=== PATIENT | female | born 1945 | race Caucasian/White ===

== ENCOUNTER → 2017-12-18 | Outpatient (CLI) | payer OTHER ==
[2016-08-15 12:29] VITALS: BP 117/62
--- NOTE | 2017-12-18 15:21 | MRI ---
Indication: Back pain Exam: MRI lumbar spine without contrast. Technique: Routine multiplanar multisequence imaging was performed of the lumbar spine without contra st. Comparison: 11/28/2014. Findings: The lumbar vertebra are well aligned. There is moderate disc space narrowing throughout wit h diffuse moderate disc desiccation which is most severe at L4-5 which is unchanged. No fracture or s ubluxation is seen. The bone marrow signal is normal throughout. The conus is normal. There is a mild to moderate disc bulge at L4-5 causing mild dural sac effacement anteriorly which is unchanged. Ther e is a small central disc bulge at L5-S1. There are moderate hypertrophic changes of the facet throug hout with mild spinal stenosis inferiorly which is most prominent at the L3-4 level. The paravertebra l soft tissues are normal. The bone marrow signal is normal throughout. There is minimal fluid in the facet of L4-5 on the left. Impression: Moderate multilevel degenerative disc disease which is most severe at L4-5 and is unchanged with no a cute abnormality seen. Mild to moderate central disc bulge at L4-5 and a small disc bulge at L5-S1 which is unchanged Moderate osteoarthritic changes of facets throughout causing diffuse mild spinal stenosis which is mo st prominent at the L3-4 level and is unchanged. Minimal fluid in the facet at L3-4 on the left which may represent synovitis in the joint. Reported By:
--- NOTE | 2017-12-21 07:49 | MRI ---
HISTORY: Neck pain, neuropathy Study: MRI cervical spine without contrast Comparison: 11/21/2014 Technique: Multi planar multi sequence noncontrast imaging Findings: The vertebral body alignment and bone signal is normal. The cervical spinal cord is normal in size an d configuration and without foci of abnormal signal. The disc levels are evaluated as follows: C2-3 level: No evidence for compressive disc disease. The neural foramina are patent. C3-4 level: No evidence for compressive disc disease. The neural foramina are patent. C4-5 level: No evidence for compressive disc disease. The neural foramina are patent. C5-6 level: There is minimal noncompressive disc bulging. The neural foramina are patent. C6-7 level. There is mild disc bulging which causes minimal thecal sac effacement but no neural compr ession or canal stenosis. The neural foramina are patent. C7-T1 level: No evidence for compressive disc disease. The neural foramina are patent. IMPRESSION: As above Reported By:
== END | disposition home or self-care (01) ==
LOC: RAD 10:59
PROVIDERS: ATTEND Nurse Practitioner Family
DX: M54.17 Radiculopathy, lumbosacral region (principal); M51.36 Other intervertebral disc degeneration, lumbar region; M51.26 Other intervertebral disc displacement, lumbar region; M51.27 Other intervertebral disc displacement, lumbosacral region; M50.222 Other cervical disc displacement at C5-C6 level
CPT/HCPCS: 72141; 72148

== ENCOUNTER 2018-02-06 17:31 | Observation (INO) | payer MEDICARE, OTHER ==
[2018-02-06] MEDS ORDERED: ZOFRAN INJ 4 MG VIAL IVP ONE (20:15)
[2018-02-06] MEDS ORDERED: TORADOL 30 MG VIAL IVP STA (20:15)
[2018-02-06] MEDS ORDERED: TORADOL 30 MG VIAL ONE (20:17)
[2018-02-06] MEDS ORDERED: ZOFRAN INJ 4 MG VIAL ONE (20:17)
--- NOTE | 2018-02-06 20:21 | DR.GENAD ---
HPI - PCP Primary Care Physician: MARY - Complaint/Symptoms Chief Complaint Doctors Comments: Patient is complaining of hurting epigastric and chest pain with nausea, vomiting and diarrhea. States she is unable to keep anything down. States she took a Percocet but it came back up. States she is having xiphoid chest pain that radiates to the left arm and neck. States she is a patient of Dr. Rosado and she has a grand child with gastroenteritis and she is afraid that she may have it also. states she has been having low back pain but it is chronic. she denies dysuria, hematuria, or any recent trauma. States she has had a probllem with diverticulosis. states she ate at a [place] rest[employer] yesterday but she was sick before then. Chief Complaint:: " M GI SYSTEM IS UPSET, I FEEL WEAK AND MY THROW UP IS YELLOW , TENDER IN MIDDLE ABD, LOWER AND UPPER BACK" Self Treatment fo Chief Complaint: PHENERGAN - Nurses notes reviewed Nurses Notes Review: Yes - Source History Provided: Patient - Mode of Arrival Mode of Arrival: Wheelchair - Timing Onset of Chief Complaint: 02/06/18 Came on: Gradually - Duration Duration: Constant How lon Duration: Days - Location Location: epigastric and xiphoid pain - Severity Severity: Moderate, Severe - Modifying Factors Worsens:: movement Improves:: nothing PMH - PMH Past Medical History: Yes Past Medical History: COPD, GERD, Hypertension Past Medical History Comment: CHRONIC BACK PAIN Past Surgical History: Yes Surgical History: Appendectomy, Bowel Resection, Cholecystectomy, Hysterectomy - Family History History of Family Medical Conditions: No Family Medical History: Diabetes Mellitus, Cancer, Heart Failure, Hypertension - Social History Does patient currently use any type of tobacco product: No Have you used tobacco products in the last 12 months: No Type of Tobacco Use: None Does any household member use tobacco: No Alcohol Use: None Do you use any recreational Drugs:: No Lives With: Family Lives Where: Home - infectious screening In the last 2 months have you had wt loss of >10#?: NO Have you had fever, night sweats or hemotysis?: No Have you traveled outside the country in the last 6 months?: No Isolation: Standard ROS - Review of Systems Constitutional: No Symptoms Reported, Fever, Loss of Appetite Eyes: No Symptoms Reported. negative: See HPI, Eye Pain, Blurred Vision, Tearing, Discharge, Photophobia, Diplopia, Other ENTM: No Symptoms Reported. negative: See HPI, Ear Pain, Ear Discharge, Pulling on Ears, Hearing Loss, Nose Pain, Nose Discharge, Epistaxis, Nose Congestion, Mouth Pain, Mouth Swelling, Loose Teeth, Drooling, Throat Pain, Throat Swelling, Ear Foreign Body Respiratoy: No Symptoms Reported Cardiovascular: No Symptoms Reported, Chest Pain. negative: See HPI, Edema, Palpitations, Syncope, Cyanosis, Skin Mottling, Other Gastrointestinal/Abdominal: No Symptoms Reported, Abdominal Pain, Diarrhea, Nausea, Vomiting Genitourinary: No Symptoms Reported. negative: See HPI, Discharge, Dysuria, Frequency, Hematuria, Pain, Bleeding, Other Neurological: No Symptoms Reported Musculoskeletal: No Symptoms Reported Integumentary: No Symptoms Reported Hematologic/Lymphatic: No Symptoms Reported. negative: See HPI, Anemia, Blood Clots, Easy Bleeding, Easy Bruising, Swollen Glands, Lymphadenopathy, Other Endocrine: No Symptoms Reported Psychiatric: No Symptoms Reported. negative: See HPI, Anxiety, Depression, Hallucinations, Excessive crying, Suicidal, Other PE - Vital Signs Vitals: Temperature 97.9 F Pulse Rate 74 Respiratory Rate 18 Blood Pressure [Left Arm] 154/84 Blood Pressure [Right Arm] 117/62 Blood Pressure [Lying] 200/100 Blood Pressure [Standing] 187/96 Blood Pressure [Sitting] 202/108 Blood Pressure 110/58 O2 Sat by Pulse Oximetry 98 - General Limitations: No Limitations General Appearance: Alert, In Distress (moderate), Obese - Head Head Exam: Normal Inspection, Atraumatic, Normocephalic - Eyes Eye exam: Normal Appearance, PERRL, EOMI. negative: Scleral Icterus, Conjunctival Injection, Nystagmus, Miosis, Mydrasis, Periorbital Swelling, Periorbital Tenderness, Other - ENT ENT Exam: Normal Exam, Normal Oropharynx, Normal External Ear Exam External Ear Exam: Normal External Inspection TM/Canal Exam: Bilateral Normal Nose Exam: Normal Nose Exam Mouth Exam: Normal Inspection Throat Exam: Normal Inspection - Neck Neck Exam: Normal Inspection, Full ROM, Trachea Midline - Chest Chest Inspection: Normal Inspection, Symmetric Chest Wall Rise - Respiratory Respiratory Exam: Normal Lung Sounds Bilat Respiratory Exam: Bilateral Clear to Auscultation - Cardiovascular Cardiovascular Exam: Regular Rate, Normal Rhythm, Normal Heart Sounds, Systolic Murmur - Abdominal Exam Abdominal Exam: Normal Inspection, Normal Bowel Sounds, Soft, Tenderness ( epigastric and suprapubic tenderness), Guarding, Dimnished Bowel Sounds Abdominal Tenderness: LLQ, Suprapubic, Moderate, Severe - Extremities Extremities Exam: Normal Inspection, Full ROM, Tenderness (crepitus of the knees with tenderness), Normal Capillary Refill - Back Back Exam: Normal Inspection, Full ROM - Neurologic Neurological Exam: Alert, Oriented X3, CN II-XII Intact, Reflexes Normal. negative: Normal Gait (gait not tested) - Psychiatric Psychiatric Exam: Normal Affect, Normal Mood, Depressed - Skin Skin Exam: Warm, Dry, Intact, Normal Color Course - Consultation Called: :14 Call Returned: : (Dr. Rosado to admit) - Education/Counseling Education/Counseling: Patient, Family Educated On: Treatment, Diagnosis, Needs for Follow Up ROR - Labs Reviewed Laboratory Results Reviewed?: Yes (all labs and x-ray results reviewed and discussed with patient and family) Result Diagrams: 02/06/18 20:30 02/06/18 20:30 Laboratory: WBC 9.8 X10^3/uL (3.6-10.0) 02/06/18 20:30 RBC 5.25 X10^6/uL (3.5-5.4) 02/06/18 20:30 Hgb 16.5 g/dL (12.0-16.0) H 02/06/18 20:30 Hct 48.1 % (36.0-47.0) H 02/06/18 20:30 MCV 91.7 fL (80.0-100.0) 02/06/18 20:30 MCH 31.4 pg (27.0-34.0) 02/06/18 20:30 MCHC 34.3 g/dL (33.0-35.0) 02/06/18 20:30 RDW 13.3 % (11.6-16.5) 02/06/18 20:30 Plt Count 205 X10^3/uL (150.0-450.0) 02/06/18 20:30 MPV 9.1 fL (7.4-11.0) 02/06/18 20:30 Neut % (Auto) 87.9 % (42.0-75.0) H 02/06/18 20:30 Lymph % (Auto) 5.8 % (21.0-51.0) L 02/06/18 20:30 [place] % (Auto) 4.8 % (0.0-13.0) 02/06/18 20:30 Eos % (Auto) 1.1 % (0.9-2.9) 02/06/18 20:30 Baso % (Auto) 0.4 % (0.2-1.0) 02/06/18 20:30 Neut # (Auto) 8.6 x10^3/uL (2.2-4.8) H 02/06/18 20:30 Lymph # (Auto) 0.6 X10^3/uL (1.3-2.9) L 02/06/18 20:30 [place] # (Auto) 0.5 x10^3/uL (0.3-0.8) 02/06/18 20:30 Eos # (Auto) 0.1 x10^3/uL (0.0-0.2) 02/06/18 20:30 Baso # (Auto) 0.0 X10^3/uL (0.0-0.1) 02/06/18 20:30 Absolute Nucleated RBC 0.0 /100WBC 02/06/18 20:30 INR Target Range - 02/06/18 20:30 INR 0.97 (0.8-1.3) 02/06/18 20:30 APTT 21.4 SECONDS (22.9-36.5) L 02/06/18 20:30 PTT Comment - 02/06/18 20:30 Sodium 136 mmol/L (136-145) 02/06/18 20:30 Corrected Sodium 137 mmol/L (136-145) 02/06/18 20:30 Potassium 4.3 mmol/L (3.5-5.1) 02/06/18 20:30 Chloride 99 mmol/L (98-107) 02/06/18 20:30 Carbon Dioxide 22.9 mmol/L (21-32) 02/06/18 20:30 BUN 34 mg/dL (7-18) H 02/06/18 20:30 Creatinine 1.40 mg/dL (0.55-1.02) H 02/06/18 20:30 Est GFR (MDRD) Af Amer 47 (>60) L 02/06/18 20:30 Est GFR (MDRD) Non-Af 39 (>60) L 02/06/18 20:30 Glucose 124 mg/dL (65-99) H 02/06/18 20:30 Calcium 9.5 mg/dL (8.5-10.1) 02/06/18 20:30 Corrected Calcium TNP 02/06/18 20:30 Magnesium 2.0 mg/dL (1.7-2.9) 02/06/18 20:30 Total Bilirubin 1.10 mg/dL (0.2-1.0) H 02/06/18 20:30 AST 67 Units/L (15-37) H 02/06/18 20:30 ALT 48 Units/L (12-78) 02/06/18 20:30 Alkaline Phosphatase 110 Units/L (46-116) 02/06/18 20:30 Creatine Kinase 51 Units/L (26-192) 02/06/18 20:30 CK-MB (CK-2) < 1.0 ng/mL (0-4.0) 02/06/18 20:30 CK/CKMB % Calc 2.0 % (<4) 02/06/18 20:30 Troponin I < 0.02 ng/mL (0-1.5) 02/06/18 20:30 Total Protein 8.8 g/dL (6.4-8.2) H 02/06/18 20:30 Albumin 3.9 g/dL (3.4-5.0) 02/06/18 20:30 Globulin 4.9 g/dL (2.5-4.5) H 02/06/18 20:30 Albumin/Globulin Ratio 0.8 Ratio (1.1-2.1) L 02/06/18 20:30 Amylase 64 Units/L (25-115) 02/06/18 20:30 Lipase 115 Units/L (73-393) 02/06/18 20:30 - XRAY XRAY Interpreted by: Radiologist (CXR: No acute cardiopulmonary disease) - EKG Rate: [address] [place]: Normal Rhythm: NSR Block: None Hypertrophy: None ST: Nonsp - Diagnosis Discharge Problem: Chest pain, rule out acute myocardial infarction, Gastroenteritis, Dehydration , Chronic kidney disease, Epigastric abdominal pain - Discharge Plan Disposition: ADMITTED INPATIENT Condition: Stable - Follow ups/Referrals Follow ups/Referrals: Joseph Rosado [Primary Care Provider] - 3 days - Instructions
[2018-02-06 20:42] LABS: BASOPHILS % (AUTO) 0.4 % (0.2-1.0); EOSINOPHILS # (AUTO) 0.1 x10^3/uL (0.0-0.2); EOSINOPHILS % (AUTO) 1.1 % (0.9-2.9); HEMATOCRIT 48.1 % (36.0-47.0); HEMOGLOBIN 16.5 g/dL (12.0-16.0); LYMPHOCYTES # (AUTO) 0.6 X10^3/uL (1.3-2.9); LYMPHOCYTES % (AUTO) 5.8 % (21.0-51.0); MEAN CORPUSCULAR HEMOGLOBIN 31.4 pg (27.0-34.0); MEAN CORPUSCULAR HGB CONC 34.3 g/dL (33.0-35.0); MEAN CORPUSCULAR VOLUME 91.7 fL (80.0-100.0); MEAN PLATELET VOLUME 9.1 fL (7.4-11.0); MONOCYTES # (AUTO) 0.5 x10^3/uL (0.3-0.8); MONOCYTES % (AUTO) 4.8 % (0.0-13.0); NEUTROPHILS # (AUTO) 8.6 x10^3/uL (2.2-4.8); NEUTROPHILS % (AUTO) 87.9 % (42.0-75.0); PLATELET COUNT 205 X10^3/uL (150.0-450.0); RED BLOOD COUNT 5.25 X10^6/uL (3.5-5.4); RED CELL DISTRIBUTION WIDTH 13.3 % (11.6-16.5); WHITE BLOOD COUNT 9.8 X10^3/uL (3.6-10.0)
[2018-02-06 20:58] LABS: BLOOD UREA NITROGEN 34 mg/dL (7-18); CALCIUM 9.5 mg/dL (8.5-10.1); CARBON DIOXIDE 22.9 mmol/L (21-32); CHLORIDE 99 mmol/L (98-107); COR NA(FOR HYPERGLY) 137 mmol/L (136-145); SODIUM 136 mmol/L (136-145); TROPONIN I < 0.02 ng/mL (0-1.5); eGFR BLACK RACES 47 (>60); eGFR NON BLACK RACES 39 (>60)
[2018-02-06] MEDS ORDERED: NS 1000 ML 1,000 ML IV SCH (21:00)
--- NOTE | 2018-02-06 21:01 | RAD ---
HISTORY: Chest pain Study: Single-view chest Comparison: 08/13/2016 Findings: The trachea is deviated to the right secondary patient rotation. The cardiac silhouette is unremarka ble. The lungs are clear without focal infiltrate or effusion. The bony thorax is unremarkable. IMPRESSION: 1. No acute cardiopulmonary disease. Reported By:
[2018-02-06 21:02] LABS: ALANINE AMINOTRANSFERASE 48 Units/L (12-78); ALBUMIN 3.9 g/dL (3.4-5.0); ALKALINE PHOSPHATASE 110 Units/L (46-116); AMYLASE 64 Units/L (25-115); CREATINE KINASE 51 Units/L (26-192); CREATINE KINASE MB < 1.0 ng/mL (0-4.0); LIPASE 115 Units/L (73-393); TOTAL PROTEIN 8.8 g/dL (6.4-8.2)
[2018-02-06 21:09] LABS: ASPARTATE AMINO TRANSFERASE 67 Units/L (15-37)
[2018-02-06] MEDS ORDERED: ZOFRAN INJ 4 MG VIAL IVP PRN (22:18)
[2018-02-07] MEDS: NS 1000 ML 1,000 ML IV SCH ×2 (00:14→12:17)
[2018-02-07 03:13] LABS: CREATINE KINASE 49 Units/L (26-192); CREATINE KINASE MB < 1.0 ng/mL (0-4.0); TROPONIN I < 0.02 ng/mL (0-1.5)
[2018-02-07] MEDS ORDERED: NORCO 5/325 MG TAB PO PRN (04:37)
[2018-02-07] MEDS: LOMOTIL PO PRN ×3 (04:48→09:01)
[2018-02-07 08:14] LABS: CRYPTOSPORIDIUM PARVUM ANTIGEN NEGATIVE (NEGATIVE); GIARDIA LAMBLIA ANTIGEN NEGATIVE (NEGATIVE)
[2018-02-07 08:53] LABS: BASOPHILS % (AUTO) 0.6 % (0.2-1.0); EOSINOPHILS # (AUTO) 0.1 x10^3/uL (0.0-0.2); EOSINOPHILS % (AUTO) 1.3 % (0.9-2.9); HEMATOCRIT 40.3 % (36.0-47.0); HEMOGLOBIN 13.9 g/dL (12.0-16.0); LYMPHOCYTES # (AUTO) 0.7 X10^3/uL (1.3-2.9); LYMPHOCYTES % (AUTO) 14.3 % (21.0-51.0); MEAN CORPUSCULAR HEMOGLOBIN 31.3 pg (27.0-34.0); MEAN CORPUSCULAR HGB CONC 34.5 g/dL (33.0-35.0); MEAN CORPUSCULAR VOLUME 90.8 fL (80.0-100.0); MEAN PLATELET VOLUME 8.7 fL (7.4-11.0); MONOCYTES # (AUTO) 0.4 x10^3/uL (0.3-0.8); MONOCYTES % (AUTO) 7.5 % (0.0-13.0); NEUTROPHILS % (AUTO) 76.3 % (42.0-75.0); PLATELET COUNT 170 X10^3/uL (150.0-450.0); RED BLOOD COUNT 4.44 X10^6/uL (3.5-5.4); RED CELL DISTRIBUTION WIDTH 13.5 % (11.6-16.5); WHITE BLOOD COUNT 5.2 X10^3/uL (3.6-10.0)
[2018-02-07] MEDS: LOVENOX INJ 40 MG SYR SC SCH (09:00)
[2018-02-07] MEDS ORDERED: PROTONIX INJ 40 MG VIAL IVP SCH (09:00)
[2018-02-07 09:07] LABS: ALANINE AMINOTRANSFERASE 47 Units/L (12-78); ALBUMIN 3.1 g/dL (3.4-5.0); ALKALINE PHOSPHATASE 87 Units/L (46-116); ASPARTATE AMINO TRANSFERASE 46 Units/L (15-37); BLOOD UREA NITROGEN 31 mg/dL (7-18); CALCIUM 8.1 mg/dL (8.5-10.1); CARBON DIOXIDE 24.9 mmol/L (21-32); CHLORIDE 105 mmol/L (98-107); COR CA(FOR HYPOALB) 8.8 mg/dL (8.5-10.1); CREATININE 1.28 mg/dL (0.55-1.02); SODIUM 140 mmol/L (136-145); TOTAL PROTEIN 6.9 g/dL (6.4-8.2); eGFR BLACK RACES 52 (>60); eGFR NON BLACK RACES 43 (>60)
[2018-02-07 09:13] LABS: CHOL/HDL RATIO 4.4 (0.0-5.0)
[2018-02-07 09:23] LABS: CREATINE KINASE 42 Units/L (26-192); CREATINE KINASE MB < 1.0 ng/mL (0-4.0); TROPONIN I < 0.02 ng/mL (0-1.5)
[2018-02-07 09:25] LABS: CKMB % 2.4 % (<4)
[2018-02-07] MEDS ORDERED: NS 1000 ML 1,000 ML IV ONE (09:39)
[2018-02-07] MEDS: ZOFRAN INJ 4 MG VIAL IVP PRN (10:30)
[2018-02-07] MEDS: LEVSIN/MAALOX/LIDOC VISC PO SCH ×4 (12:11→21:26)
[2018-02-07] MEDS: PEPCID 20 MG IV PREMIX* 20 MG/50 ML BAG IV SCH ×2 (12:16→21:32)
[2018-02-07] MEDS: PERCOCET TAB 5/325 MG PO PRN (17:26)
[2018-02-07] MEDS ORDERED: XANAX PO PRN (20:19)
[2018-02-07] MEDS ORDERED: ULTRAM PO PRN (20:19)
[2018-02-07] MEDS: PROTONIX INJ 40 MG VIAL IVP SCH (21:31)
--- NOTE | 2018-02-07 23:20 | DR.H&P ---
H&P - History & Physical for Day of: H&P Date: 02/06/18 - Chief Complaint Chief Complaint: weakness, chest pain, abdominal pain, vomiting - Allergies Allergies/Adverse Reactions: Allergies Allergy/AdvReac Type Severity Reaction Status Date / Time amoxicillin Allergy Verified 02/06/18 17:34 clavulanic acid Allergy Verified 02/06/18 17:34 [From Augmentin] Sulfa (Sulfonamide Allergy Verified 02/06/18 17:34 Antibiotics) [SULFA] - History of Present Illness History of Present Illness: is a 72 year old patient of ours who presented to the emergency room complains of weakness, chest pain, abdominal pain, and vomiting. Patient reports that chest pain radiates to the left arm and neck. Associated symptoms include lower back pain, nausea, and diarrhea. Upon exam patient is found to have decreased bowel sounds with abdominal guarding and tenderness in the epigastric and suprapubic area. Patient is unable to lie flat and is short of breath at rest. Lungs noted to be diminished. Intensity of pain noted to be moderate to severe. Patient reported taking Phenergan at home with no relief. Patient also reports taking a Percocet and vomited it back up. On arrival, vitals were 97.9-74-18-98%-110/58. Labs were obtained. Abnormal lab values include the following: HGB 16.5, Hct 48.1, BUN 34, Creatinine 1.40, GFR Af Amer 47, Non Af 39, Glucose 124, Total Bili 1.10 ,, AST 67, Total Protein 8.8, Globulin 4.9, Albumin/Globulin Ratio 0.8. APTT 21.4. Stool Culture: Pending. Chest Xray revealed: No Acute Cardiopulmonary Disease. EKG revealed: Rate 74 Sinus Rhythm, EKG Rate 80 Sinus Rhythm Borderline prolonged [place] Interval. Patient received Zofran 4mg IV for nausea with IV hydration of NS 1000mls @ 250mls/hr X 1 and Toradol 30mg IVP x1 for pain. Patient admitted for further evaluation and treatment. we plan to obtain serial cardiac enzymes and EKGs. We will also monitor and treat pain and nausea and continue with gentle hydration. We will follow up with labs in the am and continue to monitor patient. - Past Medical History Past Medical History: COPD, GERD, Hypertension - Past Surgical History Surgical History: Bowel Resection, Cholecystectomy, Hysterectomy - Family History Family Medical History: Diabetes Mellitus, Cancer, [place], Coronary Artery Disease, Heart Failure, Hypertension - Social History Does patient currently use any type of tobacco product: No Have you used tobacco products in the last 12 months: No Type of Tobacco Use: None Does any household member use tobacco: No Alcohol Use: None Drug Use: None - Medications Home Medications: Nebivolol HCl [Bystolic] 2.5 mg PO DAILY 02/07/18 [History Confirmed 02/07/18] Oxycodone HCl/Acetaminophen [Endocet 10-325 mg] 1 tab PO Q4-6H PRN 02/07/18 [ History Confirmed 02/07/18] Tramadol HCl [Tramadol HCl] 50 mg PO Q8H PRN 02/07/18 [History Confirmed ] Tramadol HCl [Tramadol HCl] 50 mg PO Q8H PRN 02/07/18 [History Confirmed ] Valsartan/Hydrochlorothiazide [Diovan Hct 320-25 mg] 1 tab PO DAILY 02/07/18 [ History Confirmed 02/07/18] - Review of Systems Constitutional: Weakness Eyes: No Symptoms Reported ENT: No Symptoms Reported Respiratory: No Symptoms Reported Cardiovascular: Chest Pain. denies: Edema Gastrointestinal: Nausea, Vomiting, Abdominal Pain, Diarrhea. denies: Constipation, Melena, Hematochezia Genitourinary: No Symptoms Reported Musculoskeletal: No Symptoms Reported Skin: No Symptoms Reported - Physical Exam Vital Signs: Temperature 98.3 F Pulse Rate [Apical] 63 Pulse Rate 74 Respiratory Rate 15 Blood Pressure [Left Arm] 124/61 Blood Pressure [Right Arm] 109/65 Blood Pressure [Lying] 200/100 Blood Pressure [Standing] 187/96 Blood Pressure [Sitting] 202/108 Blood Pressure 110/58 O2 Sat by Pulse Oximetry 96 Oriented: Normal Eyes: Normal Ear: Normal Nose: Normal Throat: Normal Respiratory: Diminished Throughout Cardiovascular: Normal : Normal Auscultation: Bowel Sounds: Decreased Tenderness: Epigastric, Suprapubic, Moderate, Guarding Skin: Normal Musculoskeletal: Normal Psychiatric: Normal Mood Description: Calm Affect: Normal Speech Pattern: Clear - Assessment/Plan (1) Chest pain, rule out acute myocardial infarction Status: Acute Plan: serial cardiac enzymes and 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
[2018-02-08] MEDS: NS 1000 ML 1,000 ML IV SCH ×2 (02:57→14:40)
[2018-02-08] MEDS: PERCOCET TAB 5/325 MG PO PRN ×3 (03:46→20:00)
[2018-02-08] MEDS: ZOFRAN INJ 4 MG VIAL IVP PRN (06:01)
[2018-02-08 06:18] LABS: BASOPHILS % (AUTO) 1.2 % (0.2-1.0); EOSINOPHILS # (AUTO) 0.1 x10^3/uL (0.0-0.2); EOSINOPHILS % (AUTO) 3.1 % (0.9-2.9); HEMATOCRIT 38.9 % (36.0-47.0); HEMOGLOBIN 13.1 g/dL (12.0-16.0); LYMPHOCYTES # (AUTO) 0.8 X10^3/uL (1.3-2.9); LYMPHOCYTES % (AUTO) 19.9 % (21.0-51.0); MEAN CORPUSCULAR HEMOGLOBIN 31.2 pg (27.0-34.0); MEAN CORPUSCULAR HGB CONC 33.7 g/dL (33.0-35.0); MEAN CORPUSCULAR VOLUME 92.5 fL (80.0-100.0); MEAN PLATELET VOLUME 8.9 fL (7.4-11.0); MONOCYTES # (AUTO) 0.3 x10^3/uL (0.3-0.8); MONOCYTES % (AUTO) 7.9 % (0.0-13.0); NEUTROPHILS # (AUTO) 2.8 x10^3/uL (2.2-4.8); NEUTROPHILS % (AUTO) 67.9 % (42.0-75.0); PLATELET COUNT 153 X10^3/uL (150.0-450.0); RED BLOOD COUNT 4.21 X10^6/uL (3.5-5.4); RED CELL DISTRIBUTION WIDTH 13.3 % (11.6-16.5); WHITE BLOOD COUNT 4.1 X10^3/uL (3.6-10.0)
[2018-02-08 06:46] LABS: ALANINE AMINOTRANSFERASE 45 Units/L (12-78); ALBUMIN 2.8 g/dL (3.4-5.0); ALKALINE PHOSPHATASE 75 Units/L (46-116); ASPARTATE AMINO TRANSFERASE 63 Units/L (15-37); BLOOD UREA NITROGEN 20 mg/dL (7-18); CHLORIDE 108 mmol/L (98-107); CREATININE 1.16 mg/dL (0.55-1.02); SODIUM 140 mmol/L (136-145); TOTAL PROTEIN 6.4 g/dL (6.4-8.2); eGFR BLACK RACES 59 (>60); eGFR NON BLACK RACES 49 (>60)
[2018-02-08] MEDS: SINGULAIR TAB 10 MG PO SCH (08:15)
[2018-02-08] MEDS: LEVSIN/MAALOX/LIDOC VISC PO SCH ×4 (08:15→21:31)
[2018-02-08] MEDS: PEPCID 20 MG IV PREMIX* 20 MG/50 ML BAG IV SCH ×2 (08:15→21:32)
[2018-02-08] MEDS: ZyrTEC TAB 10 MG PO SCH (08:15)
[2018-02-08] MEDS: LOVENOX INJ 40 MG SYR SC SCH (08:16)
[2018-02-08] MEDS: PROTONIX INJ 40 MG VIAL IVP SCH ×2 (08:16→21:32)
[2018-02-08] MEDS ORDERED: CETIRIZINE HCL PO SCH (09:00)
--- NOTE | 2018-02-08 10:44 | PCM.PROG ---
Progress Note - Progress Note for Day of Date: 02/07/18 - Subjective Subjective: IS BEING TREATED FOR DEHYDRATION AND GASTROENTERITIS. TODAY, SHE IS ALERT AND ORIENTED, LYING IN BED ON MORNING ROUNDS. SHE CONTINUES WITH COMPLAINTS OF NAUSEA AND DIFFUSE ABDOMINAL PAIN. ON EXAMINATION, HEART IS REGULAR IN RATE AND RHYTHM. BILATERAL LUNGS ARE NOTED WITH DIMINISHED LUNG SOUNDS THROUGHOUT. ABDOMEN IS ROUND, SOFT, AND NOTED WITH DIFFUSE TENDERNESS TO PALPATION. HYPERACTIVE BOWEL SOUNDS NOTED IN ALL QUADRANTS. HER VITALS THIS MORNING ARE 98.1-65-18-98%-109/59. LABS WERE OBTAINED. ABNORMAL LAB VALUES INCLUDE THE FOLLOWING: BUN 31, CREATININE 1.28, GLUCOSE 101, CALCIUM 8.1, AST 46 , ALBUMIN 3.1, LDL 111. STOOL STUDIES WERE OBTAINED AND ARE PENDING. TODAY, WE WILL INCREASE THE ZOFRAN TO 8MG IV Q4H PRN AND START PEPCID 20MG IV BID, PROTONIX 40MG IV BID, AND GI COCKTAIL QID. OTHERWISE, WE WILL CONTINUE WITH CURRENT PLAN OF CARE. WE WILL RESUME HOME MEDICATIONS. WE PLAN TO FOLLOW UP WITH AM LABS AND CONTINUE TO MONITOR PATIENT. - Past Medical Family Social History Past Med/Fam/Surg Hx: No changes since H&P Allergies: Allergies amoxicillin Allergy (Verified 02/06/18 17:34) clavulanic acid [From Augmentin] Allergy (Verified 02/06/18 17:34) Sulfa (Sulfonamide Antibiotics) [SULFA] Allergy (Verified 02/06/18 17:34) - Review of Systems ROS: No change since H&P - Vital Signs and I&O's Vital Signs: Temperature 98.2 F Pulse Rate [Apical] 71 Pulse Rate 74 Respiratory Rate 15 Blood Pressure [Left Arm] 124/61 Blood Pressure [Right Arm] 129/61 Blood Pressure [Lying] 200/100 Blood Pressure [Standing] 187/96 Blood Pressure [Sitting] 202/108 Blood Pressure 110/58 O2 Sat by Pulse Oximetry 100 Intake and Output: Intake & Output 02/05/18 02/06/18 02/07/18 02/08/18 11:59 11:59 11:59 11:59 Intake Total 1690 3170 Output Total 2 Balance 1688 3170 - Physical Exam Oriented: Normal Eyes: Normal Ear: Normal Nose: Normal Throat: Normal Respiratory: Normal Cardiovascular: Normal : Normal Auscultation: Bowel Sounds: Increased Palpation: Normal Tenderness: Diffuse, Moderate, Guarding Skin: Normal Musculoskeletal: Normal Psychiatric: Normal Mood Description: Calm Affect: Normal Speech Pattern: Clear - Laboratory and Diagnostics Result Diagrams: 02/08/18 05:35 02/08/18 05:35 Labs: 02/07/18 06:54 Stool Stool Culture - Preliminary 02/07/18 06:54 Stool - Final Laboratory WBC 4.1 X10^3/uL (3.6-10.0) 02/08/18 05:35 RBC 4.21 X10^6/uL (3.5-5.4) 02/08/18 05:35 Hgb 13.1 g/dL (12.0-16.0) 02/08/18 05:35 Hct 38.9 % (36.0-47.0) 02/08/18 05:35 MCV 92.5 fL (80.0-100.0) 02/08/18 05:35 MCH 31.2 pg (27.0-34.0) 02/08/18 05:35 MCHC 33.7 g/dL (33.0-35.0) 02/08/18 05:35 RDW 13.3 % (11.6-16.5) 02/08/18 05:35 Plt Count 153 X10^3/uL (150.0-450.0) 02/08/18 05:35 MPV 8.9 fL (7.4-11.0) 02/08/18 05:35 Neut % (Auto) 67.9 % (42.0-75.0) 02/08/18 05:35 Lymph % (Auto) 19.9 % (21.0-51.0) L 02/08/18 05:35 [place] % (Auto) 7.9 % (0.0-13.0) 02/08/18 05:35 Eos % (Auto) 3.1 % (0.9-2.9) H 02/08/18 05:35 Baso % (Auto) 1.2 % (0.2-1.0) H 02/08/18 05:35 Neut # (Auto) 2.8 x10^3/uL (2.2-4.8) 02/08/18 05:35 Lymph # (Auto) 0.8 X10^3/uL (1.3-2.9) L 02/08/18 05:35 [place] # (Auto) 0.3 x10^3/uL (0.3-0.8) 02/08/18 05:35 Eos # (Auto) 0.1 x10^3/uL (0.0-0.2) 02/08/18 05:35 Baso # (Auto) 0.0 X10^3/uL (0.0-0.1) 02/08/18 05:35 Absolute Nucleated RBC 0.1 /100WBC 02/08/18 05:35 INR Target Range - 02/06/18 20:30 INR 0.97 (0.8-1.3) 02/06/18 20:30 APTT 21.4 SECONDS (22.9-36.5) L 02/06/18 20:30 PTT Comment - 02/06/18 20:30 Sodium 140 mmol/L (136-145) 02/08/18 05:35 Corrected Sodium TNP 02/08/18 05:35 Potassium 3.9 mmol/L (3.5-5.1) 02/08/18 05:35 Chloride 108 mmol/L (98-107) H 02/08/18 05:35 Carbon Dioxide 24.0 mmol/L (21-32) 02/08/18 05:35 BUN 20 mg/dL (7-18) H 02/08/18 05:35 Creatinine 1.16 mg/dL (0.55-1.02) H 02/08/18 05:35 Est GFR (MDRD) Af Amer 59 (>60) 02/08/18 05:35 Est GFR (MDRD) Non-Af 49 (>60) L 02/08/18 05:35 Glucose 85 mg/dL (65-99) 02/08/18 05:35 Calcium 8.0 mg/dL (8.5-10.1) L 02/08/18 05:35 Corrected Calcium 9.0 mg/dL (8.5-10.1) 02/08/18 05:35 Magnesium 2.0 mg/dL (1.7-2.9) 02/06/18 20:30 Total Bilirubin 0.50 mg/dL (0.2-1.0) 02/08/18 05:35 AST 63 Units/L (15-37) H 02/08/18 05:35 ALT 45 Units/L (12-78) 02/08/18 05:35 Alkaline Phosphatase 75 Units/L (46-116) 02/08/18 05:35 Creatine Kinase 42 Units/L (26-192) 02/07/18 08:35 CK-MB (CK-2) < 1.0 ng/mL (0-4.0) 02/07/18 08:35 CK/CKMB % Calc 2.4 % (<4) 02/07/18 08:35 Troponin I < 0.02 ng/mL (0-1.5) 02/07/18 08:35 Total Protein 6.4 g/dL (6.4-8.2) 02/08/18 05:35 Albumin 2.8 g/dL (3.4-5.0) L 02/08/18 05:35 Globulin 3.6 g/dL (2.5-4.5) 02/08/18 05:35 Albumin/Globulin Ratio 0.8 Ratio (1.1-2.1) L 02/08/18 05:35 Triglycerides 120 mg/dL (0-150) 02/07/18 08:35 Cholesterol 175 mg/dL (0-200) 02/07/18 08:35 LDL Cholesterol, Calc 111 mg/dL (0-100) H 02/07/18 08:35 HDL Cholesterol 40 mg/dL (40-60) 02/07/18 08:35 Cholesterol/HDL Ratio 4.4 (0.0-5.0) 02/07/18 08:35 Amylase 64 Units/L (25-115) 02/06/18 20:30 Lipase 115 Units/L (73-393) 02/06/18 20:30 Stool Description 50g,watery,green/brn 02/07/18 06:54 Stl Occult Blood (IFOB) Negative (NEGATIVE) 02/07/18 06:54 Stl C. diff Tox B Gene Negative (NEGATIVE) 02/07/18 06:54 Stl C. diff [id number] Negative (NEGATIVE) 02/07/18 06:54 Cryptosporid parvum Ag Negative (NEGATIVE) 02/07/18 06:54 E. histolytica Antigen Negative (NEGATIVE) 02/07/18 06:54 Giardia lamblia Ag Negative (NEGATIVE) 02/07/18 06:54 H. 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
--- NOTE | 2018-02-08 11:12 | PCM.PROG ---
Progress Note - Progress Note for Day of Date: 02/08/18 - Subjective Subjective: IS BEING TREATED FOR DEHYDRATION AND GASTROENTERITIS. TODAY, SHE IS ALERT AND ORIENTED, LYING IN BED ON MORNING ROUNDS. SHE CONTINUES WITH COMPLAINTS OF NAUSEA AND DIFFUSE ABDOMINAL PAIN. ON EXAMINATION, HEART IS REGULAR IN RATE AND RHYTHM. BILATERAL LUNGS ARE NOTED WITH DIMINISHED LUNG SOUNDS THROUGHOUT. ABDOMEN IS ROUND, SOFT, AND NOTED WITH DIFFUSE TENDERNESS TO PALPATION. HYPERACTIVE BOWEL SOUNDS NOTED IN ALL QUADRANTS. HER VITALS THIS MORNING ARE 98.2-71-15-100%-129/61. LABS WERE OBTAINED. ABNORMAL LAB VALUES INCLUDE THE FOLLOWING: CHLORIDE 108, BUN 20, CREATININE 1.16, CALCIUM 8.0, AST 63, ALBUMIN 2.8. STOOL STUDIES NEGATIVE. TODAY, WE WILL CONTINUE WITH IV HYDRATION AND CURRENT PLAN OF CARE. WE PLAN TO FOLLOW UP WITH AM LABS AND CONTINUE TO MONITOR PATIENT. - Past Medical Family Social History Past Med/Fam/Surg Hx: No changes since H&P Allergies: Allergies amoxicillin Allergy (Verified 02/06/18 17:34) clavulanic acid [From Augmentin] Allergy (Verified 02/06/18 17:34) Sulfa (Sulfonamide Antibiotics) [SULFA] Allergy (Verified 02/06/18 17:34) - Review of Systems ROS: No change since H&P - Vital Signs and I&O's Vital Signs: Temperature 98.2 F Pulse Rate [Apical] 71 Pulse Rate 74 Respiratory Rate 15 Blood Pressure [Left Arm] 124/61 Blood Pressure [Right Arm] 129/61 Blood Pressure [Lying] 200/100 Blood Pressure [Standing] 187/96 Blood Pressure [Sitting] 202/108 Blood Pressure 110/58 O2 Sat by Pulse Oximetry 100 Intake and Output: Intake & Output 02/05/18 02/06/18 02/07/18 02/08/18 11:59 11:59 11:59 11:59 Intake Total 1690 3170 Output Total 2 Balance 1688 3170 - Physical Exam Oriented: Normal Eyes: Normal Ear: Normal Nose: Normal Throat: Normal Respiratory: Normal Cardiovascular: Normal : Normal Auscultation: Bowel Sounds: Increased Palpation: Normal Tenderness: Diffuse, Moderate, Guarding Skin: Normal Musculoskeletal: Normal Psychiatric: Normal Mood Description: Calm Affect: Normal Speech Pattern: Clear - Laboratory and Diagnostics Result Diagrams: 02/08/18 05:35 02/08/18 05:35 Labs: 02/07/18 06:54 Stool Stool Culture - Preliminary 02/07/18 06:54 Stool - Final Laboratory WBC 4.1 X10^3/uL (3.6-10.0) 02/08/18 05:35 RBC 4.21 X10^6/uL (3.5-5.4) 02/08/18 05:35 Hgb 13.1 g/dL (12.0-16.0) 02/08/18 05:35 Hct 38.9 % (36.0-47.0) 02/08/18 05:35 MCV 92.5 fL (80.0-100.0) 02/08/18 05:35 MCH 31.2 pg (27.0-34.0) 02/08/18 05:35 MCHC 33.7 g/dL (33.0-35.0) 02/08/18 05:35 RDW 13.3 % (11.6-16.5) 02/08/18 05:35 Plt Count 153 X10^3/uL (150.0-450.0) 02/08/18 05:35 MPV 8.9 fL (7.4-11.0) 02/08/18 05:35 Neut % (Auto) 67.9 % (42.0-75.0) 02/08/18 05:35 Lymph % (Auto) 19.9 % (21.0-51.0) L 02/08/18 05:35 [place] % (Auto) 7.9 % (0.0-13.0) 02/08/18 05:35 Eos % (Auto) 3.1 % (0.9-2.9) H 02/08/18 05:35 Baso % (Auto) 1.2 % (0.2-1.0) H 02/08/18 05:35 Neut # (Auto) 2.8 x10^3/uL (2.2-4.8) 02/08/18 05:35 Lymph # (Auto) 0.8 X10^3/uL (1.3-2.9) L 02/08/18 05:35 [place] # (Auto) 0.3 x10^3/uL (0.3-0.8) 02/08/18 05:35 Eos # (Auto) 0.1 x10^3/uL (0.0-0.2) 02/08/18 05:35 Baso # (Auto) 0.0 X10^3/uL (0.0-0.1) 02/08/18 05:35 Absolute Nucleated RBC 0.1 /100WBC 02/08/18 05:35 INR Target Range - 02/06/18 20:30 INR 0.97 (0.8-1.3) 02/06/18 20:30 APTT 21.4 SECONDS (22.9-36.5) L 02/06/18 20:30 PTT Comment - 02/06/18 20:30 Sodium 140 mmol/L (136-145) 02/08/18 05:35 Corrected Sodium TNP 02/08/18 05:35 Potassium 3.9 mmol/L (3.5-5.1) 02/08/18 05:35 Chloride 108 mmol/L (98-107) H 02/08/18 05:35 Carbon Dioxide 24.0 mmol/L (21-32) 02/08/18 05:35 BUN 20 mg/dL (7-18) H 02/08/18 05:35 Creatinine 1.16 mg/dL (0.55-1.02) H 02/08/18 05:35 Est GFR (MDRD) Af Amer 59 (>60) 02/08/18 05:35 Est GFR (MDRD) Non-Af 49 (>60) L 02/08/18 05:35 Glucose 85 mg/dL (65-99) 02/08/18 05:35 Calcium 8.0 mg/dL (8.5-10.1) L 02/08/18 05:35 Corrected Calcium 9.0 mg/dL (8.5-10.1) 02/08/18 05:35 Magnesium 2.0 mg/dL (1.7-2.9) 02/06/18 20:30 Total Bilirubin 0.50 mg/dL (0.2-1.0) 02/08/18 05:35 AST 63 Units/L (15-37) H 02/08/18 05:35 ALT 45 Units/L (12-78) 02/08/18 05:35 Alkaline Phosphatase 75 Units/L (46-116) 02/08/18 05:35 Creatine Kinase 42 Units/L (26-192) 02/07/18 08:35 CK-MB (CK-2) < 1.0 ng/mL (0-4.0) 02/07/18 08:35 CK/CKMB % Calc 2.4 % (<4) 02/07/18 08:35 Troponin I < 0.02 ng/mL (0-1.5) 02/07/18 08:35 Total Protein 6.4 g/dL (6.4-8.2) 02/08/18 05:35 Albumin 2.8 g/dL (3.4-5.0) L 02/08/18 05:35 Globulin 3.6 g/dL (2.5-4.5) 02/08/18 05:35 Albumin/Globulin Ratio 0.8 Ratio (1.1-2.1) L 02/08/18 05:35 Triglycerides 120 mg/dL (0-150) 02/07/18 08:35 Cholesterol 175 mg/dL (0-200) 02/07/18 08:35 LDL Cholesterol, Calc 111 mg/dL (0-100) H 02/07/18 08:35 HDL Cholesterol 40 mg/dL (40-60) 02/07/18 08:35 Cholesterol/HDL Ratio 4.4 (0.0-5.0) 02/07/18 08:35 Amylase 64 Units/L (25-115) 02/06/18 20:30 Lipase 115 Units/L (73-393) 02/06/18 20:30 Stool Description 50g,watery,green/brn 02/07/18 06:54 Stl Occult Blood (IFOB) Negative (NEGATIVE) 02/07/18 06:54 Stl C. diff Tox B Gene Negative (NEGATIVE) 02/07/18 06:54 Stl C. diff [id number] Negative (NEGATIVE) 02/07/18 06:54 Cryptosporid parvum Ag Negative (NEGATIVE) 02/07/18 06:54 E. histolytica Antigen Negative (NEGATIVE) 02/07/18 06:54 Giardia lamblia Ag Negative (NEGATIVE) 02/07/18 06:54 H. pylori IgG Antibody Negative (NEGATIVE) 02/07/18 08:36 - Plan (1) Chest pain, rule out acute myocardial infarction Status: Resolved Plan: supplemental oxygen, telemetry monitor, continue to monitor (2) Dehydration Status: Acute Plan: normal saline bolus then normal saline at 80ml/hr, continue to monitor (3) Gastroenteritis Status: Acute Plan: normal saline bolus, then normal saline at 80ml/hr, pepcid iv, protonix iv , gi cocktail po qid, continue to monitor
[2018-02-08 13:24] VITALS: BMI 37.9
[2018-02-09] MEDS: NS 1000 ML 1,000 ML IV SCH (02:45)
[2018-02-09 05:48] LABS: BASOPHILS % (AUTO) 0.9 % (0.2-1.0); EOSINOPHILS # (AUTO) 0.2 x10^3/uL (0.0-0.2); EOSINOPHILS % (AUTO) 4.2 % (0.9-2.9); HEMOGLOBIN 12.9 g/dL (12.0-16.0); LYMPHOCYTES # (AUTO) 1.2 X10^3/uL (1.3-2.9); LYMPHOCYTES % (AUTO) 28.7 % (21.0-51.0); MEAN CORPUSCULAR HEMOGLOBIN 31.1 pg (27.0-34.0); MEAN CORPUSCULAR HGB CONC 33.9 g/dL (33.0-35.0); MEAN CORPUSCULAR VOLUME 91.8 fL (80.0-100.0); MEAN PLATELET VOLUME 9.1 fL (7.4-11.0); MONOCYTES # (AUTO) 0.4 x10^3/uL (0.3-0.8); NEUTROPHILS # (AUTO) 2.2 x10^3/uL (2.2-4.8); NEUTROPHILS % (AUTO) 55.2 % (42.0-75.0); PLATELET COUNT 149 X10^3/uL (150.0-450.0); RED BLOOD COUNT 4.14 X10^6/uL (3.5-5.4); RED CELL DISTRIBUTION WIDTH 13.3 % (11.6-16.5)
[2018-02-09 06:06] LABS: ALANINE AMINOTRANSFERASE 40 Units/L (12-78); ALBUMIN 2.8 g/dL (3.4-5.0); ALKALINE PHOSPHATASE 86 Units/L (46-116); ASPARTATE AMINO TRANSFERASE 45 Units/L (15-37); BLOOD UREA NITROGEN 14 mg/dL (7-18); CALCIUM 8.2 mg/dL (8.5-10.1); CARBON DIOXIDE 23.8 mmol/L (21-32); CHLORIDE 107 mmol/L (98-107); COR CA(FOR HYPOALB) 9.2 mg/dL (8.5-10.1); CREATININE 1.13 mg/dL (0.55-1.02); SODIUM 139 mmol/L (136-145); TOTAL PROTEIN 6.4 g/dL (6.4-8.2); eGFR BLACK RACES > 60 (>60); eGFR NON BLACK RACES 50 (>60)
[2018-02-09] MEDS: LOVENOX INJ 40 MG SYR SC SCH (09:02)
[2018-02-09] MEDS: PROTONIX INJ 40 MG VIAL IVP SCH (09:03)
[2018-02-09] MEDS: PEPCID 20 MG IV PREMIX* 20 MG/50 ML BAG IV SCH (09:03)
[2018-02-09] MEDS: SINGULAIR TAB 10 MG PO SCH (09:03)
[2018-02-09] MEDS: LEVSIN/MAALOX/LIDOC VISC PO SCH (09:04)
[2018-02-09] MEDS: PERCOCET TAB 5/325 MG PO PRN (09:04)
[2018-02-09] MEDS: ZyrTEC TAB 10 MG PO SCH (09:05)
[2018-02-09] MEDS: ZOFRAN INJ 4 MG VIAL IVP PRN (12:00)
[2018-02-09 12:39] VITALS: BP 146/72
== END 2018-02-09 12:30 | disposition home or self-care (01) ==
LOC: ER 17:44 → ICU 22:14
PROVIDERS: ADMIT Internal Medicine; ATTEND Internal Medicine
DX: R07.89 Other chest pain (principal); K52.89 Other specified noninfective gastroenteritis and colitis; E86.0 Dehydration; N18.3 Chronic kidney disease, stage 3 (moderate); R10.13 Epigastric pain; R94.31 Abnormal electrocardiogram [ECG] [EKG]
CPT/HCPCS: 36415; 71045; 80053; 80061; 82150; 82274; 82550; 82553; 82705; 83690; 83735; 84484; 85025; 85610; 85730; 86677; 87045; 87328; 87329; 87336; 87427; 87449; 87493; 93005; 93010; 96365; 96367; 96374; 96375; 99283; A4216; A4222; C9113; S0028; G0378; J1650; J1885; J2405

== ENCOUNTER 2019-09-06 14:38 | Observation (INO) ==
[2019-09-06 15:40] LABS: BASOPHILS # (AUTO) 0.1 X10^3/uL (0.0-0.1); BASOPHILS % (AUTO) 1.5 % (0.2-1.0); EOSINOPHILS # (AUTO) 0.2 x10^3/uL (0.0-0.2); EOSINOPHILS % (AUTO) 2.6 % (0.9-2.9); HEMATOCRIT 42.7 % (36.0-47.0); HEMOGLOBIN 14.5 g/dL (12.0-16.0); LYMPHOCYTES # (AUTO) 1.5 X10^3/uL (1.3-2.9); LYMPHOCYTES % (AUTO) 20.8 % (21.0-51.0); MEAN CORPUSCULAR HEMOGLOBIN 31.6 pg (27.0-34.0); MEAN CORPUSCULAR HGB CONC 33.9 g/dL (33.0-35.0); MEAN CORPUSCULAR VOLUME 93.2 fL (80.0-100.0); MEAN PLATELET VOLUME 8.9 fL (7.4-11.0); MONOCYTES # (AUTO) 0.6 x10^3/uL (0.3-0.8); MONOCYTES % (AUTO) 8.6 % (0.0-13.0); NEUTROPHILS # (AUTO) 4.6 x10^3/uL (2.2-4.8); NEUTROPHILS % (AUTO) 66.5 % (42.0-75.0); PLATELET COUNT 203 X10^3/uL (150.0-450.0); RED BLOOD COUNT 4.57 X10^6/uL (3.5-5.4); RED CELL DISTRIBUTION WIDTH 13.8 % (11.6-16.5)
[2019-09-06 15:47] LABS: ALANINE AMINOTRANSFERASE 34 Units/L (12-78); ALBUMIN 3.6 g/dL (3.4-5.0); ALKALINE PHOSPHATASE 142 Units/L (46-116); ASPARTATE AMINO TRANSFERASE 46 Units/L (15-37); BLOOD UREA NITROGEN 23 mg/dL (7-18); CARBON DIOXIDE 31.6 mmol/L (21-32); CHLORIDE 102 mmol/L (98-107); CREATININE 1.33 mg/dL (0.55-1.02); SODIUM 140 mmol/L (136-145); TOTAL PROTEIN 7.8 g/dL (6.4-8.2); eGFR NON BLACK RACES 41 (>60)
[2019-09-06] MEDS ORDERED: ACCUNEB 1.25 MG NEBULE NEB PRN (15:56)
[2019-09-06] MEDS: NS 1000 ML 1,000 ML IV SCH (15:59)
[2019-09-06] MEDS: TORADOL 15 MG VIAL IVP SCH ×2 (15:59→20:44)
[2019-09-06] MEDS ORDERED: PROVENTIL NEB TX 0.083% 2.5MG/ 3ML NEB PRN (16:01)
[2019-09-06 18:31] VITALS: BMI 36.0
[2019-09-06 18:59] LABS: BILIRUBIN,URINE NEGATIVE (NEGATIVE); BLOOD/HEMOGLOBIN,URINE NEGATIVE (NEGATIVE); GLUCOSE, URINE NEGATIVE (NEGATIVE); KETONES,URINE NEGATIVE (NEGATIVE); LEUKOCYTE ESTERASE ,URINE 1+ (NEGATIVE); NITRITES,URINE NEGATIVE (NEGATIVE); PROTEIN,URINE 1+ (NEGATIVE); UROBILINOGEN,URINE NORMAL (NORMAL)
[2019-09-06 19:05] LABS: APPEARANCE,URINE SLIGHTLY HAZY (CLEAR); BACTERIA,URINE TRACE /HPF (NEGATIVE); COLOR,URINE DARK YELLOW (YELLOW); RBC,URINE NONE SEEN /HPF (0-3); SQUAMOUS EPITHELIAL CELL,UR MODERATE /HPF (NEGATIVE)
[2019-09-06 19:06] LABS: HYALINE CASTS, URINE RARE /LPF (NEGATIVE)
[2019-09-06] MEDS ORDERED: ZOFRAN INJ 4 MG VIAL IVP PRN (21:57)
[2019-09-07] MEDS: TORADOL 15 MG VIAL IVP SCH (02:41)
[2019-09-07] MEDS: NS 1000 ML 1,000 ML IV SCH ×2 (04:00→16:20)
[2019-09-07 05:17] LABS: BASOPHILS % (AUTO) 0.8 % (0.2-1.0); EOSINOPHILS # (AUTO) 0.2 x10^3/uL (0.0-0.2); EOSINOPHILS % (AUTO) 3.8 % (0.9-2.9); HEMATOCRIT 39.4 % (36.0-47.0); HEMOGLOBIN 13.4 g/dL (12.0-16.0); LYMPHOCYTES # (AUTO) 1.3 X10^3/uL (1.3-2.9); MEAN CORPUSCULAR HEMOGLOBIN 31.9 pg (27.0-34.0); MEAN CORPUSCULAR HGB CONC 34.1 g/dL (33.0-35.0); MEAN CORPUSCULAR VOLUME 93.5 fL (80.0-100.0); MEAN PLATELET VOLUME 9.2 fL (7.4-11.0); MONOCYTES # (AUTO) 0.5 x10^3/uL (0.3-0.8); MONOCYTES % (AUTO) 10.3 % (0.0-13.0); NEUTROPHILS # (AUTO) 2.8 x10^3/uL (2.2-4.8); NEUTROPHILS % (AUTO) 58.1 % (42.0-75.0); PLATELET COUNT 162 X10^3/uL (150.0-450.0); RED BLOOD COUNT 4.21 X10^6/uL (3.5-5.4); RED CELL DISTRIBUTION WIDTH 13.9 % (11.6-16.5); WHITE BLOOD COUNT 4.8 X10^3/uL (3.6-10.0)
[2019-09-07 05:28] LABS: ALANINE AMINOTRANSFERASE 26 Units/L (12-78); ALBUMIN 3.1 g/dL (3.4-5.0); ALKALINE PHOSPHATASE 113 Units/L (46-116); ASPARTATE AMINO TRANSFERASE 31 Units/L (15-37); BLOOD UREA NITROGEN 20 mg/dL (7-18); CALCIUM 8.4 mg/dL (8.5-10.1); CARBON DIOXIDE 25.4 mmol/L (21-32); CHLORIDE 106 mmol/L (98-107); COR CA(FOR HYPOALB) 9.1 mg/dL (8.5-10.1); CREATININE 1.15 mg/dL (0.55-1.02); SODIUM 141 mmol/L (136-145); TOTAL PROTEIN 6.7 g/dL (6.4-8.2); eGFR NON BLACK RACES 49 (>60)
[2019-09-07] MEDS ORDERED: VALSARTAN HYDROCHLOROTHIAZIDE PO SCH (10:00)
--- NOTE | 2019-09-07 10:21 | DR.UPDATE ---
H&P Update History and Physical Update: History and Physical reviewed and patient examined. Changes noted: Yes with the following: WAS SEEN IN THE OFFICE TODAY FOR COMPLAINTS OF PERSISTENT BACK PAIN. SHE DOES HAVE CHRONIC BACK PAIN DUE TO RADICULOPATHY IN THE LUMBOSACRAL REGION. WE HAVE ADJUSTED HER MEDICATIONS SEVERAL TIMES OVER THE PAST FEW WEEKS. SHE IS CURRENTLY RECEIVING LYRICA 50MG PO DAILY, PERCOCET 7.5/325 Q6H PRN, AND CYMBALTA, BUT DENIES IMPROVEMENT IN SYMPTOMS. WE WILL ADMIT PATIENT FOR FURTHER EVALUATION AND TREATMENT OF INTRACTABLE BACK PAIN. ON ADMISSION, WE WILL START TORADOL 15MG IV Q6H, IV FLUIDS, AND WILL OBTAIN A LUMBAR SPINE XRAY. WE WILL OBTAIN LABS AND CONTINUE TO MONITOR. Prescription drug monitoring program results: PDMP was not reviewed H&P Reviewed: Yes Patient was examined?: Yes
[2019-09-07] MEDS: LYRICA CAP 50 mg PO SCH (11:20)
[2019-09-07] MEDS: PEPCID TAB 20 MG PO SCH ×2 (11:21→21:07)
[2019-09-07] MEDS: PROTONIX TAB 40 MG PO SCH ×2 (11:21→21:07)
[2019-09-07] MEDS: MIRALAX POWDER (255 GRAMS BTL) PO SCH (11:22)
[2019-09-07] MEDS: PERCOCET TAB 5/325 MG PO SCH ×3 (11:22→21:12)
--- NOTE | 2019-09-07 13:11 | RAD ---
History: Low back pain and left leg radiculopathy Study: Five views of the lumbar spine new Comparison: None Findings: There is normal alignment with severe L4-5 disc space narrowing and with associated osteophyte formation. There is no fracture or compression. There is severe right more than left facet joint osteoarthritis and moderate L4-5 facet joint osteoarthritis as well. Impression: Severe L4-5 degenerative disc disease. Severe lower lumbar facet joint osteoarthritis. Reported By:
[2019-09-07] MEDS: HYDROCHLOROTHIAZIDE 25 MG TAB PO SCH (13:27)
[2019-09-07] MEDS: DIOVAN TAB 160 MG PO SCH (13:27)
[2019-09-07] MEDS: LOVENOX INJ 40 MG SYR SC SCH (13:35)
[2019-09-07] MEDS: TORADOL 30 MG VIAL IVP SCH ×2 (14:06→21:07)
[2019-09-07] MEDS: PATIENT'S HOME MEDICATION (Mirabegron [Myrbetriq] 50 MG) PO SCH (15:28)
[2019-09-07] MEDS: VALIUM PO PRN (21:07)
--- NOTE | 2019-09-07 22:57 | PCM.PROG ---
Progress Note - Progress Note for Day of Date of Exam: 09/07/19 - Subjective Subjective: IS BEING TREATED FOR INTRACTABLE BACK PAIN. TODAY, SHE IS ALERT AND ORIENTED, LYING IN BED ON MORNING ROUNDS. SHE CONTINUES WITH COMPLAINTS OF MODERATE LOWER BACK PAIN. PAIN IS WORSE ON AMBULATION OR WHEN MOVING AROUND. HER VITALS THIS MORNING ARE: 98.3-71-18-93%-152/68. LABS WERE OBTAINED. ABNORMAL LAB VALUES INCLUDE THE FOLLOWING: BUN 20, CREATININE 1.15, CALCIUM 8.4, CRP 9.30, ALBUMIN 3.1. A URINE CULTURE IS PENDING. SHE IS CURRENTLY RECEIVING NORMAL SALINE AT 80ML/HR AND TORADOL 15MG IV Q6H. TODAY, WE WILL INCREASE THE TORADOL TO 30MG IV Q8H AND START VALIUM 5MG PO TID PRN. WE WILL RESUME HER MEDICATIONS. WE PLAN TO OBTAIN A LUMBAR SPINE XRAY. WE WILL ALSO CONSIDER A LUMBAR SPINE MRI. OTHERWISE, WE WILL FOLLOW UP WITH AM LABS AND CONTINUE TO MONITOR. - Past Medical Family Social History Past Med/Fam/Surg Hx: No changes since H&P Allergies: Allergies amoxicillin Allergy (Verified 02/06/18 17:34) clavulanic acid [From Augmentin] Allergy (Verified 02/06/18 17:34) Sulfa (Sulfonamide Antibiotics) [SULFA] Allergy (Verified 02/06/18 17:34) - Review of Systems ROS: No change since H&P - Vital Signs and I&O's Vital Signs: Temperature 98.2 F Pulse Rate [Right Brachial] 71 Respiratory Rate 18 Blood Pressure [Left Arm] 140/74 Blood Pressure [Right Arm] 136/63 O2 Sat by Pulse Oximetry 96 Intake and Output: Intake & Output 09/05/19 09/06/19 09/07/19 09/08/19 11:59 11:59 11:59 11:59 Intake Total 1740 / 1740 1220 / 1220 Output Total 400 / 400 Balance 1340 / 1340 1220 / 1220 - Physical Exam Oriented: Normal Eyes: Normal Ear: Normal Nose: Normal Throat: Normal Respiratory: Normal Cardiovascular: Normal : Normal Auscultation: Bowel Sounds: Normal Palpation: Normal Tenderness: Normal Skin: Normal Musculoskeletal: Back:Lumbar, Tender Psychiatric: Normal Mood Description: Calm Affect: Normal Speech Pattern: Clear, Appropriate - Laboratory and Diagnostics Result Diagrams: 09/07/19 04:00 09/07/19 04:00 Labs: 09/06/19 18:48 Urine,Clean Catch Urine Culture - Preliminary Laboratory WBC 4.8 X10^3/uL (3.6-10.0) 09/07/19 04:00 RBC 4.21 X10^6/uL (3.5-5.4) 09/07/19 04:00 Hgb 13.4 g/dL (12.0-16.0) 09/07/19 04:00 Hct 39.4 % (36.0-47.0) 09/07/19 04:00 MCV 93.5 fL (80.0-100.0) 09/07/19 04:00 MCH 31.9 pg (27.0-34.0) 09/07/19 04:00 MCHC 34.1 g/dL (33.0-35.0) 09/07/19 04:00 RDW 13.9 % (11.6-16.5) 09/07/19 04:00 Plt Count 162 X10^3/uL (150.0-450.0) 09/07/19 04:00 MPV 9.2 fL (7.4-11.0) 09/07/19 04:00 Neut % (Auto) 58.1 % (42.0-75.0) 09/07/19 04:00 Lymph % (Auto) 27.0 % (21.0-51.0) 09/07/19 04:00 [place] % (Auto) 10.3 % (0.0-13.0) 09/07/19 04:00 Eos % (Auto) 3.8 % (0.9-2.9) H 09/07/19 04:00 Baso % (Auto) 0.8 % (0.2-1.0) 09/07/19 04:00 Neut # (Auto) 2.8 x10^3/uL (2.2-4.8) 09/07/19 04:00 Lymph # (Auto) 1.3 X10^3/uL (1.3-2.9) 09/07/19 04:00 [place] # (Auto) 0.5 x10^3/uL (0.3-0.8) 09/07/19 04:00 Eos # (Auto) 0.2 x10^3/uL (0.0-0.2) 09/07/19 04:00 Baso # (Auto) 0.0 X10^3/uL (0.0-0.1) 09/07/19 04:00 Absolute Nucleated RBC 0.1 /100WBC 09/07/19 04:00 ESR 24 MM/HOUR (0-20) H 09/07/19 04:00 Sodium 141 mmol/L (136-145) 09/07/19 04:00 Corrected Sodium TNP 09/07/19 04:00 Potassium 3.7 mmol/L (3.5-5.1) 09/07/19 04:00 Chloride 106 mmol/L (98-107) 09/07/19 04:00 Carbon Dioxide 25.4 mmol/L (21-32) 09/07/19 04:00 BUN 20 mg/dL (7-18) H 09/07/19 04:00 Creatinine 1.15 mg/dL (0.55-1.02) H 09/07/19 04:00 Est GFR (MDRD) Af Amer 59 (>60) 09/07/19 04:00 Est GFR (MDRD) Non-Af 49 (>60) L 09/07/19 04:00 Glucose 92 mg/dL (65-99) 09/07/19 04:00 Calcium 8.4 mg/dL (8.5-10.1) L 09/07/19 04:00 Corrected Calcium 9.1 mg/dL (8.5-10.1) 09/07/19 04:00 Total Bilirubin 0.70 mg/dL (0.2-1.0) 09/07/19 04:00 AST 31 Units/L (15-37) 09/07/19 04:00 ALT 26 Units/L (12-78) 09/07/19 04:00 Alkaline Phosphatase 113 Units/L (46-116) 09/07/19 04:00 C-Reactive Protein 9.30 mg/L (0-3.0) H 09/07/19 04:00 Total Protein 6.7 g/dL (6.4-8.2) 09/07/19 04:00 Albumin 3.1 g/dL (3.4-5.0) L 09/07/19 04:00 Globulin 3.6 g/dL (2.5-4.5) 09/07/19 04:00 Albumin/Globulin Ratio 0.9 Ratio (1.1-2.1) L 09/07/19 04:00 Specimen Type Clean catch urine 09/06/19 18:48 Urine Color Dark yellow (YELLOW) 09/06/19 18:48 Urine Appearance Slightly hazy (CLEAR) 09/06/19 18:48 Urine pH 5.0 (5.0 - 8.0) 09/06/19 18:48 Ur Specific [place] 1.020 (1.000-1.030) 09/06/19 18:48 Urine Protein 1+ (NEGATIVE) 09/06/19 18:48 Urine Glucose (UA) Negative (NEGATIVE) 09/06/19 18:48 Urine Ketones Negative (NEGATIVE) 09/06/19 18:48 Urine Occult Blood Negative (NEGATIVE) 09/06/19 18:48 Urine Nitrite Negative (NEGATIVE) 09/06/19 18:48 Urine Bilirubin Negative (NEGATIVE) 09/06/19 18:48 Urine Urobilinogen Normal (NORMAL) 09/06/19 18:48 Ur Leukocyte Esterase 1+ (NEGATIVE) 09/06/19 18:48 Urine RBC None seen /HPF (0-3) 09/06/19 18:48 Urine WBC 3-5 /HPF (0-5) 09/06/19 18:48 Ur Squamous Epith Cells Moderate /HPF (NEGATIVE) 09/06/19 18:48 Urine Bacteria Trace /HPF (NEGATIVE) 09/06/19 18:48 Hyaline Casts Rare /LPF (NEGATIVE) 09/06/19 18:48 Ur Culture Indicated? No/not indicated 09/06/19 18:48 - Plan (1) Intractable low back pain Status: Acute Plan: TORADOL 30MG IV Q6H, VALIUM 5MG PO TID, RESUME PERCOCET, OBTAIN XRAY AND MRI, CONTINUE TO MONITOR.
[2019-09-08] MEDS: PERCOCET TAB 5/325 MG PO SCH ×4 (04:31→21:24)
[2019-09-08 04:54] LABS: BASOPHILS % (AUTO) 0.9 % (0.2-1.0); EOSINOPHILS # (AUTO) 0.2 x10^3/uL (0.0-0.2); EOSINOPHILS % (AUTO) 3.8 % (0.9-2.9); HEMATOCRIT 38.6 % (36.0-47.0); HEMOGLOBIN 13.2 g/dL (12.0-16.0); LYMPHOCYTES # (AUTO) 1.5 X10^3/uL (1.3-2.9); LYMPHOCYTES % (AUTO) 31.2 % (21.0-51.0); MEAN CORPUSCULAR HEMOGLOBIN 32.2 pg (27.0-34.0); MEAN CORPUSCULAR HGB CONC 34.3 g/dL (33.0-35.0); MEAN CORPUSCULAR VOLUME 93.8 fL (80.0-100.0); MONOCYTES # (AUTO) 0.5 x10^3/uL (0.3-0.8); MONOCYTES % (AUTO) 10.2 % (0.0-13.0); NEUTROPHILS # (AUTO) 2.6 x10^3/uL (2.2-4.8); NEUTROPHILS % (AUTO) 53.9 % (42.0-75.0); PLATELET COUNT 160 X10^3/uL (150.0-450.0); RED BLOOD COUNT 4.11 X10^6/uL (3.5-5.4); RED CELL DISTRIBUTION WIDTH 13.8 % (11.6-16.5); WHITE BLOOD COUNT 4.8 X10^3/uL (3.6-10.0)
[2019-09-08 05:00] LABS: ALANINE AMINOTRANSFERASE 24 Units/L (12-78); ALKALINE PHOSPHATASE 110 Units/L (46-116); ASPARTATE AMINO TRANSFERASE 33 Units/L (15-37); BLOOD UREA NITROGEN 16 mg/dL (7-18); CALCIUM 8.4 mg/dL (8.5-10.1); CARBON DIOXIDE 26.7 mmol/L (21-32); CHLORIDE 108 mmol/L (98-107); COR CA(FOR HYPOALB) 9.2 mg/dL (8.5-10.1); CREATININE 1.05 mg/dL (0.55-1.02); SODIUM 143 mmol/L (136-145); TOTAL PROTEIN 6.6 g/dL (6.4-8.2); eGFR NON BLACK RACES 54 (>60)
[2019-09-08] MEDS: NS 1000 ML 1,000 ML IV SCH ×2 (05:45→21:18)
[2019-09-08] MEDS: TORADOL 30 MG VIAL IVP SCH ×3 (05:46→21:20)
[2019-09-08] MEDS: LOVENOX INJ 40 MG SYR SC SCH (09:08)
[2019-09-08] MEDS: PROTONIX TAB 40 MG PO SCH ×2 (09:10→21:18)
[2019-09-08] MEDS: DIOVAN TAB 160 MG PO SCH (09:10)
[2019-09-08] MEDS: LYRICA CAP 50 mg PO SCH (09:10)
[2019-09-08] MEDS: HYDROCHLOROTHIAZIDE 25 MG TAB PO SCH (09:10)
[2019-09-08] MEDS: PEPCID TAB 20 MG PO SCH ×2 (09:11→21:18)
[2019-09-08] MEDS: PATIENT'S HOME MEDICATION (Mirabegron [Myrbetriq] 50 MG) PO SCH (09:11)
[2019-09-08] MEDS: MIRALAX POWDER (255 GRAMS BTL) PO SCH (09:13)
[2019-09-08] MEDS: ROCEPHIN VIAL 1 GRAM 1 G in NS 100 ML IV + SPIKE MINIBAG* 100 ML IV SCH (11:00)
[2019-09-08] MEDS: VALIUM PO PRN (12:01)
--- NOTE | 2019-09-08 14:35 | PCM.PROG ---
Progress Note - Progress Note for Day of Date of Exam: 09/08/19 - Subjective Subjective: IS BEING TREATED FOR INTRACTABLE BACK PAIN. TODAY, SHE IS ALERT AND ORIENTED, LYING IN BED ON MORNING ROUNDS. SHE CONTINUES WITH COMPLAINTS OF MODERATE LOWER BACK PAIN. PAIN IS WORSE ON AMBULATION OR WHEN MOVING AROUND. HER VITALS THIS MORNING ARE: 97.8-69-18-98%-147/79. LABS WERE OBTAINED. ABNORMAL LAB VALUES INCLUDE THE FOLLOWING: CHLORIDE 108, CREATININE 1.05, CALCIUM 8.4, ALBUMIN 3.0. A URINE CULTURE IS PENDING. A LUMBAR SPINE XRAY WAS OBTAINED YESTERDAY AND REVEALED: Severe L4-5 degenerative disc disease. Severe lower lumbar facet joint osteoarthritis. PRELIMINARY URINE CULTURE REPORTS GROWTH OF GRAM NEGATIVE RODS. SHE IS CURRENTLY RECEIVING NORMAL SALINE AT 80ML/HR, TORADOL 30MG IV Q8H, VALIUM 5MG PO TID PRN, AND HOME MEDICATIONS WERE RESUMED. TODAY, WE WILL START ROCEPHIN 1G IV DAILY. OTHERWISE, WE WILL FOLLOW UP WITH AM LABS AND CONTINUE TO MONITOR. - Past Medical Family Social History Past Med/Fam/Surg Hx: No changes since H&P Allergies: Allergies amoxicillin Allergy (Verified 02/06/18 17:34) clavulanic acid [From Augmentin] Allergy (Verified 02/06/18 17:34) Sulfa (Sulfonamide Antibiotics) [SULFA] Allergy (Verified 02/06/18 17:34) - Review of Systems ROS: No change since H&P - Vital Signs and I&O's Vital Signs: Temperature 98.6 F Pulse Rate [Right Brachial] 67 Respiratory Rate 18 Blood Pressure [Left Arm] 154/74 Blood Pressure [Right Arm] 136/63 O2 Sat by Pulse Oximetry 97 Intake and Output: Intake & Output 09/06/19 09/07/19 09/08/19 09/09/19 11:59 11:59 11:59 11:59 Intake Total 1740 / 1740 2360 / 2360 Output Total 400 / 400 Balance 1340 / 1340 2360 / 2360 - Physical Exam Oriented: Normal Eyes: Normal Ear: Normal Nose: Normal Throat: Normal Respiratory: Normal Cardiovascular: Normal : Normal Auscultation: Bowel Sounds: Normal Palpation: Normal Tenderness: Normal Skin: Normal Musculoskeletal: Back:Lumbar, Tender Psychiatric: Normal Mood Description: Calm Affect: Normal Speech Pattern: Clear, Appropriate - Laboratory and Diagnostics Result Diagrams: 09/08/19 03:58 09/08/19 03:58 Labs: 09/06/19 18:48 Urine,Clean Catch Urine Culture - Preliminary Laboratory WBC 4.8 X10^3/uL (3.6-10.0) 09/08/19 03:58 RBC 4.11 X10^6/uL (3.5-5.4) 09/08/19 03:58 Hgb 13.2 g/dL (12.0-16.0) 09/08/19 03:58 Hct 38.6 % (36.0-47.0) 09/08/19 03:58 MCV 93.8 fL (80.0-100.0) 09/08/19 03:58 MCH 32.2 pg (27.0-34.0) 09/08/19 03:58 MCHC 34.3 g/dL (33.0-35.0) 09/08/19 03:58 RDW 13.8 % (11.6-16.5) 09/08/19 03:58 Plt Count 160 X10^3/uL (150.0-450.0) 09/08/19 03:58 MPV 9.0 fL (7.4-11.0) 09/08/19 03:58 Neut % (Auto) 53.9 % (42.0-75.0) 09/08/19 03:58 Lymph % (Auto) 31.2 % (21.0-51.0) 09/08/19 03:58 [place] % (Auto) 10.2 % (0.0-13.0) 09/08/19 03:58 Eos % (Auto) 3.8 % (0.9-2.9) H 09/08/19 03:58 Baso % (Auto) 0.9 % (0.2-1.0) 09/08/19 03:58 Neut # (Auto) 2.6 x10^3/uL (2.2-4.8) 09/08/19 03:58 Lymph # (Auto) 1.5 X10^3/uL (1.3-2.9) 09/08/19 03:58 [place] # (Auto) 0.5 x10^3/uL (0.3-0.8) 09/08/19 03:58 Eos # (Auto) 0.2 x10^3/uL (0.0-0.2) 09/08/19 03:58 Baso # (Auto) 0.0 X10^3/uL (0.0-0.1) 09/08/19 03:58 Absolute Nucleated RBC 0.1 /100WBC 09/08/19 03:58 ESR 24 MM/HOUR (0-20) H 09/07/19 04:00 Sodium 143 mmol/L (136-145) 09/08/19 03:58 Corrected Sodium TNP 09/08/19 03:58 Potassium 3.6 mmol/L (3.5-5.1) 09/08/19 03:58 Chloride 108 mmol/L (98-107) H 09/08/19 03:58 Carbon Dioxide 26.7 mmol/L (21-32) 09/08/19 03:58 BUN 16 mg/dL (7-18) 09/08/19 03:58 Creatinine 1.05 mg/dL (0.55-1.02) H 09/08/19 03:58 Est GFR (MDRD) Af Amer > 60 (>60) 09/08/19 03:58 Est GFR (MDRD) Non-Af 54 (>60) L 09/08/19 03:58 Glucose 91 mg/dL (65-99) 09/08/19 03:58 Calcium 8.4 mg/dL (8.5-10.1) L 09/08/19 03:58 Corrected Calcium 9.2 mg/dL (8.5-10.1) 09/08/19 03:58 Total Bilirubin 0.50 mg/dL (0.2-1.0) 09/08/19 03:58 AST 33 Units/L (15-37) 09/08/19 03:58 ALT 24 Units/L (12-78) 09/08/19 03:58 Alkaline Phosphatase 110 Units/L (46-116) 09/08/19 03:58 C-Reactive Protein 9.30 mg/L (0-3.0) H 09/07/19 04:00 Total Protein 6.6 g/dL (6.4-8.2) 09/08/19 03:58 Albumin 3.0 g/dL (3.4-5.0) L 09/08/19 03:58 Globulin 3.6 g/dL (2.5-4.5) 09/08/19 03:58 Albumin/Globulin Ratio 0.8 Ratio (1.1-2.1) L 09/08/19 03:58 Specimen Type Clean catch urine 09/06/19 18:48 Urine Color Dark yellow (YELLOW) 09/06/19 18:48 Urine Appearance Slightly hazy (CLEAR) 09/06/19 18:48 Urine pH 5.0 (5.0 - 8.0) 09/06/19 18:48 Ur Specific [place] 1.020 (1.000-1.030) 09/06/19 18:48 Urine Protein 1+ (NEGATIVE) 09/06/19 18:48 Urine Glucose (UA) Negative (NEGATIVE) 09/06/19 18:48 Urine Ketones Negative (NEGATIVE) 09/06/19 18:48 Urine Occult Blood Negative (NEGATIVE) 09/06/19 18:48 Urine Nitrite Negative (NEGATIVE) 09/06/19 18:48 Urine Bilirubin Negative (NEGATIVE) 09/06/19 18:48 Urine Urobilinogen Normal (NORMAL) 09/06/19 18:48 Ur Leukocyte Esterase 1+ (NEGATIVE) 09/06/19 18:48 Urine RBC None seen /HPF (0-3) 09/06/19 18:48 Urine WBC 3-5 /HPF (0-5) 09/06/19 18:48 Ur Squamous Epith Cells Moderate /HPF (NEGATIVE) 09/06/19 18:48 Urine Bacteria Trace /HPF (NEGATIVE) 09/06/19 18:48 Hyaline Casts Rare /LPF (NEGATIVE) 09/06/19 18:48 Ur Culture Indicated? No/not indicated 09/06/19 18:48 - Plan (1) Intractable low back pain Status: Acute Plan: TORADOL 30MG IV Q6H, VALIUM 5MG PO TID, RESUME PERCOCET, CONTINUE TO MONITOR. (2) Urinary tract infection Status: Acute Qualifiers: Urinary tract infection type: acute cystitis Hematuria presence: without hematuria Qualified Code(s): N30.00 - Acute cystitis without hematuria Plan: ROCEPHIN 1G IV DAILY, CONTINUE TO MONITOR
[2019-09-09 04:44] LABS: EOSINOPHILS # (AUTO) 0.2 x10^3/uL (0.0-0.2); EOSINOPHILS % (AUTO) 3.8 % (0.9-2.9); HEMATOCRIT 38.4 % (36.0-47.0); HEMOGLOBIN 13.2 g/dL (12.0-16.0); LYMPHOCYTES # (AUTO) 1.3 X10^3/uL (1.3-2.9); LYMPHOCYTES % (AUTO) 26.2 % (21.0-51.0); MEAN CORPUSCULAR HEMOGLOBIN 31.9 pg (27.0-34.0); MEAN CORPUSCULAR HGB CONC 34.4 g/dL (33.0-35.0); MEAN CORPUSCULAR VOLUME 92.6 fL (80.0-100.0); MEAN PLATELET VOLUME 8.6 fL (7.4-11.0); MONOCYTES # (AUTO) 0.5 x10^3/uL (0.3-0.8); MONOCYTES % (AUTO) 9.3 % (0.0-13.0); NEUTROPHILS # (AUTO) 2.9 x10^3/uL (2.2-4.8); NEUTROPHILS % (AUTO) 59.7 % (42.0-75.0); PLATELET COUNT 164 X10^3/uL (150.0-450.0); RED BLOOD COUNT 4.14 X10^6/uL (3.5-5.4); RED CELL DISTRIBUTION WIDTH 13.5 % (11.6-16.5); WHITE BLOOD COUNT 4.9 X10^3/uL (3.6-10.0)
[2019-09-09] MEDS: PERCOCET TAB 5/325 MG PO SCH ×2 (04:50→09:29)
[2019-09-09 04:52] LABS: ALANINE AMINOTRANSFERASE 21 Units/L (12-78); ALKALINE PHOSPHATASE 118 Units/L (46-116); ASPARTATE AMINO TRANSFERASE 31 Units/L (15-37); BLOOD UREA NITROGEN 17 mg/dL (7-18); CALCIUM 8.6 mg/dL (8.5-10.1); CARBON DIOXIDE 26.9 mmol/L (21-32); CHLORIDE 107 mmol/L (98-107); COR CA(FOR HYPOALB) 9.4 mg/dL (8.5-10.1); CREATININE 1.03 mg/dL (0.55-1.02); SODIUM 142 mmol/L (136-145); TOTAL PROTEIN 6.7 g/dL (6.4-8.2); eGFR NON BLACK RACES 55 (>60)
[2019-09-09] MEDS: TORADOL 30 MG VIAL IVP SCH (05:44)
[2019-09-09] MEDS: NS 1000 ML 1,000 ML IV SCH (06:21)
[2019-09-09 08:14] VITALS: BP 142/71
[2019-09-09] MEDS: ROCEPHIN VIAL 1 GRAM 1 G in NS 100 ML IV + SPIKE MINIBAG* 100 ML IV SCH (09:26)
[2019-09-09] MEDS: LYRICA CAP 50 mg PO SCH (09:28)
[2019-09-09] MEDS: DIOVAN TAB 160 MG PO SCH (09:28)
[2019-09-09] MEDS: HYDROCHLOROTHIAZIDE 25 MG TAB PO SCH (09:30)
[2019-09-09] MEDS: MIRALAX POWDER (255 GRAMS BTL) PO SCH (09:30)
[2019-09-09] MEDS: PROTONIX TAB 40 MG PO SCH (09:31)
[2019-09-09] MEDS: PEPCID TAB 20 MG PO SCH (09:31)
[2019-09-09] MEDS: LOVENOX INJ 40 MG SYR SC SCH (09:33)
[2019-09-09] MEDS: PATIENT'S HOME MEDICATION (Mirabegron [Myrbetriq] 50 MG) PO SCH (09:53)
== END 2019-09-09 12:05 | disposition home or self-care (01) ==
LOC: MED/SURG
PROVIDERS: ADMIT Internal Medicine; ATTEND Internal Medicine
CPT/HCPCS: 36415; 72110; 80053; 81001; 85025; 85652; 86140; 87086; 87088; 87186; 94760; 97116; 97162; A4216; A4222; G0378; J0696; J1650; J1885; J2405; J7030; J7050

== ENCOUNTER 2020-12-17 14:51 | Observation (INO) ==
[2020-12-17] MEDS ORDERED: NS 500 ML IV 500 ML IV STA (16:08)
[2020-12-17] MEDS ORDERED: ATIVAN INJ 2 MG VIAL IVP STA (16:08)
[2020-12-17] MEDS ORDERED: NS 500 ML IV 500 ML IV ONE (16:19)
[2020-12-17] MEDS ORDERED: ATIVAN INJ 2 MG VIAL ONE (16:20)
[2020-12-17 16:23] LABS: BILIRUBIN,URINE NEGATIVE (NEGATIVE); BLOOD/HEMOGLOBIN,URINE NEGATIVE (NEGATIVE); GLUCOSE, URINE NEGATIVE (NEGATIVE); KETONES,URINE NEGATIVE (NEGATIVE); LEUKOCYTE ESTERASE ,URINE NEGATIVE (NEGATIVE); NITRITES,URINE NEGATIVE (NEGATIVE); PROTEIN,URINE NEGATIVE (NEGATIVE); UROBILINOGEN,URINE NORMAL (NORMAL)
[2020-12-17 16:27] LABS: APPEARANCE,URINE CLEAR (CLEAR); COLOR,URINE YELLOW (YELLOW)
[2020-12-17 16:38] LABS: BASOPHILS # (AUTO) 0.1 X10^3/uL (0.0-0.1); EOSINOPHILS # (AUTO) 0.2 x10^3/uL (0.0-0.2); EOSINOPHILS % (AUTO) 1.8 % (0.9-2.9); HEMOGLOBIN 14.5 g/dL (12.0-16.0); LYMPHOCYTES # (AUTO) 2.1 X10^3/uL (1.3-2.9); LYMPHOCYTES % (AUTO) 24.6 % (21.0-51.0); MEAN CORPUSCULAR HEMOGLOBIN 31.7 pg (27.0-34.0); MEAN CORPUSCULAR HGB CONC 34.6 g/dL (33.0-35.0); MEAN CORPUSCULAR VOLUME 91.6 fL (80.0-100.0); MEAN PLATELET VOLUME 9.2 fL (7.4-11.0); MONOCYTES # (AUTO) 0.7 x10^3/uL (0.3-0.8); MONOCYTES % (AUTO) 8.3 % (0.0-13.0); NEUTROPHILS # (AUTO) 5.5 x10^3/uL (2.2-4.8); NEUTROPHILS % (AUTO) 64.3 % (42.0-75.0); PLATELET COUNT 212 X10^3/uL (150.0-450.0); RED BLOOD COUNT 4.58 X10^6/uL (3.5-5.4); RED CELL DISTRIBUTION WIDTH 13.2 % (11.6-16.5); WHITE BLOOD COUNT 8.5 X10^3/uL (3.6-10.0)
[2020-12-17 16:45] LABS: ABG ALLEN TEST POS; ABG BASE EXCESS 1.5 mmol/L (-2.0-2.0); ABG HCO3 24.6 mmol/L (22-26)
[2020-12-17 16:54] LABS: LACTIC ACID 1.7 mmol/L (0.4-2.0)
[2020-12-17 16:55] LABS: ALANINE AMINOTRANSFERASE 35 Units/L (12-78); ALBUMIN 3.7 g/dL (3.4-5.0); ALKALINE PHOSPHATASE 120 Units/L (46-116); ASPARTATE AMINO TRANSFERASE 36 Units/L (15-37); BLOOD UREA NITROGEN 22 mg/dL (7-18); CALCIUM 9.8 mg/dL (8.5-10.1); CARBON DIOXIDE 24.7 mmol/L (21-32); CHLORIDE 105 mmol/L (98-107); CREATININE 1.56 mg/dL (0.55-1.02); SODIUM 140 mmol/L (136-145); TOTAL PROTEIN 7.9 g/dL (6.4-8.2); TROPONIN I < 0.02 ng/mL (0-1.5); eGFR NON BLACK RACES 34 (>60)
--- NOTE | 2020-12-17 17:20 | CT ---
EXAM: HEAD CT WITHOUT INTRAVENOUS CONTRASTHISTORY: Altered mental status.TECHNIQUE: Spiral axial CT images are obtained through the brain without the administration of intravenous contrast. Additional sagittal and coronal reformatted images are reconstructed.DOSIMETRY: Total DLP 1256.3 mGycm; CTDI 67.4 mGyCOMPARISON: None available.FINDINGS:There are faint parenchymal lucencies within the frontal periventricular white matter tracks of the centrum semiovale, consistent with chronic sequela of atherosclerotic microvascular ischemic disease.There is mild diffuse cerebral cortical atrophy. The centrum semiovale, basal ganglia, cerebellum, and brainstem are otherwise grossly unremarkable for a noncontrast CT scan. There is no acute intracranial hemorrhage, gross acute infarction, mass lesion, midline shift, or hydrocephalus seen. No extra-axial mass or abnormal fluid collection noted.The calvarium is intact. The partially imaged paranasal sinuses, middle ear cavities and mastoid air cells are clear.IMPRESSION:1. Mild chronic microvascular ischemic disease within the frontal periventricular white matter tracks the centrum semiovale, but no discernible acute infarction seen. Consider followup MRI with diffusion-weighted imaging to rule out occult acute infarction if clinically warranted.2. No skull fracture, intracranial hemorrhage, mass lesion, midline shift, or hydrocephalus seen.Electronically signed by: Jeannette Amanda (Dec 17, 2020 17:18:45)
--- NOTE | 2020-12-17 17:28 | RAD ---
CHEST, 1 VIEWHISTORY: Altered mental statusStudy: Single view of the chest.Comparison:NoneFindings:The cardiomediastinal silhouette is normal.No focal consolidations, pleural effusions or pneumothorax. Chronic appearing vascular/reticular markings.IMPRESSION:1. No acute cardiopulmonary process.2. Chronic appearing reticular markings which may represent chronic lung diseaseElectronically signed by: EMA MOREIRA (Dec 17, 2020 17:26:42)
--- NOTE | 2020-12-17 17:28 | CT ---
EXAM: LUMBAR SPINE CTHISTORY: Back pain.TECHNIQUE: Spiral axial CT images are obtained through the lumbar spine without the administration of intravenous or intrathecal contrast. Sagittal and coronal reconstruction images are reformatted.DOSIMETRY: Total DLP 3823.7 mGycm; CTDI 115.3 mGyCOMPARISON: None available.FINDINGS:There is no vertebral fracture seen. There is no gross malalignment, spondylolisthesis, retrolisthesis, or spondylolysis seen.T12-L4: Unremarkable. There is no gross disc herniation seen. Please note that subtle soft tissue abnormalities can be obscured in this radiographic setting. Consider follow-up MRI if clinically warranted.L4?5: severe DDD, marked by disc space narrowing, vacuum disc phenomenon, chronic anterior disc bulge/marginal osteophyte complexes (8.1 mm AP, and posterior disc bulge (projecting 6.7 mm AP) encroaching upon the anterior thecal sac, lateral recesses, and inferior aspects of the neuroforamen, with potential for mild L4 and L5 nerve root impingements. Sagittal image 28?43; axial image 67?72. Mild bilateral hypertrophic facet joint DJD noted.L5-S1: Mild DDD with mild posterior disc bulge (projecting 5.7 mm AP) encroaching upon the anterior epidural fat and inferior aspect of the right neural foramen, with mild impingement of the exiting right L5 nerve root. Sagittal image 30?43; axial image 76?80. Severe right-sided hypertrophic facet joint DJD contributes to right sided bony neural foraminal stenosis.There is mild distal lumbar dextroscoliosis (with the apex at level L3/4) which may reflect chronic degenerative change and/or muscle spasm.There is aortoiliac atherosclerosis. Status post cholecystectomy. A small collapsed hiatal hernia is seen. Lobular hepatic surface contour in keeping with hepatic cirrhosis (partially imaged).IMPRESSION:1. No gross vertebral fracture or malalignment seen.2. No gross disc herniation seen.3. L4?5: severe DDD, marked by disc space narrowing, vacuum disc phenomenon, chronic anterior disc bulge/marginal osteophyte complexes (8.1 mm AP, and posterior disc bulge (projecting 6.7 mm AP) encroaching upon the anterior thecal sac, lateral recesses, and inferior aspects of the neuroforamen, with potential for mild L4 and L5 nerve root impingements. Sagittal image 28?43; axial image 67?72. Mild bilateral hypertrophic facet joint DJD noted.4. L5-S1: Mild DDD with mild posterior disc bulge (projecting 5.7 mm AP) encroaching upon the anterior epidural fat and inferior aspect of the right neural foramen, with mild impingement of the exiting right L5 nerve root. Sagittal image 30?43; axial image 76?80. Severe right-sided hypertrophic facet joint DJD contributes to right sided bony neural foraminal stenosis.Consider follow-up evaluation and MRI if symptoms persist or worsen.5. Mild distal lumbar dextroscoliosis (with the apex at level L3/4) which may reflect chronic degenerative change and/or muscle spasm.Electronically signed by: Jeannette Amanda (Dec 17, 2020 17:26:16)
--- NOTE | 2020-12-17 17:31 | CT ---
EXAM: CT OF THE PELVIC BONESHISTORY: Pain.TECHNIQUE: Spiral axial CT images are obtained through the pelvis, hips, and coccygeal regions. Sagittal and coronal reformatted images are reconstructed.DOSIMETRY: Total DLP 3823.7 mGycm; CTDI 115.3 mGyCOMPARISON: None available.FINDINGS:There is no evidence for a pelvic, hip, or sacrococcygeal fracture, subluxation, or dislocation. No focal bony erosion or sclerosis is seen. No evidence for spina bifida occulta is seen. There is no evidence for osteoarthritis or avascular necrosis of the hips. No radiodense soft tissue abnormality or foreign body is noted.Multilevel DDD and facet joint DJD is seen in the distal lumbar spine. See dedicated L-spine CT report.A Acosta balloon catheter is seen within a partially collapsed urinary bladder. Status post partial large bowel resection with reanastomosis in the sigmoid region; no anastomotic dehiscence seen. Status post hysterectomy.IMPRESSION:1. Unremarkable CT of the pelvic bones as described above.Electronically signed by: Jeannette Amanda (Dec 17, 2020 17:30:12)
[2020-12-17] MEDS ORDERED: APRESOLINE INJ 20 MG VIAL IVP ONE (17:47)
[2020-12-17] MEDS ORDERED: ZOFRAN INJ 4 MG VIAL IVP ONE ×2 (17:47→20:21)
[2020-12-17] MEDS ORDERED: TYLENOL 325 MG TAB PO ONE ×2 (17:52→18:06)
[2020-12-17] MEDS ORDERED: APRESOLINE INJ 20 MG VIAL ONE (18:06)
[2020-12-17] MEDS ORDERED: ZOFRAN INJ 4 MG VIAL ONE ×2 (18:06→21:02)
[2020-12-17] MEDS ORDERED: MORPHINE SULFATE INJ 4 MG IVP ONE (20:21)
[2020-12-17] MEDS ORDERED: MORPHINE SULFATE INJ 4 MG ONE (21:02)
--- NOTE | 2020-12-17 21:26 | DR.PSYCH ---
HPI Time Seen Time Seen by Provider: 12/17/20 15:14 HPI Comment HPI Comment: PATIENT WITH HISTORY OF HYPERTENSION, COPD ONSET OF CONFUSION THIS AM ASSOCIATED WITH RAPID REPETITIVE SPEECH. FLIGHT OF IDEAS WHILE CRYING ABOUT BOBO AND HER PARENTS. NO HISTORY OF TRAUMA, INJURY, FEVER OR COUGH. DAUGHTER STATES PATIENT HAS BEEN MARKEDLY DEPRESSED FOR 3 WEEKS. Complaint Chief Complaint Doctors Comments: ONSET OF CONFUSION, CRYING ABOUT BOBO, PARENT, CONFUSION Chief Complaint:: Pt crying stating " I want to see my Mama and Daddy." Unable to obtain any other info at this time. COVID-19 Coronavirus risk:travel/contact w/high risk person: No Has patient experienced Coronavirus symptoms: No Reviewed Nurses Notes Review: Yes Source History Provided: EMS Mode of Arrival Mode of Arrival: EMS Timing Onset of Chief Complaint: 12/17/20 Came on: Suddenly Duration Duration: Since Onset PMH PMH Past Medical History: Yes Past Medical History: COPD, GERD and Hypertension Past Surgical History: Yes Surgical History: Bowel Resection, Cholecystectomy and Hysterectomy Family History History of Family Medical Conditions: Yes Family Medical History: Diabetes Mellitus, Cancer, [place], Coronary Artery Disease, Heart Failure and Hypertension Social History Does patient currently use any type of tobacco product: No Have you used tobacco products in the last 12 months: No Type of Tobacco Use: None Does any household member use tobacco: No Alcohol Use: None Do you use any recreational Drugs:: No Lives With: Family Lives Where: Home Travel Risk Coronavirus risk:travel/contact w/high risk person: No Has patient experienced Coronavirus symptoms: No Infectious screening In the last 2 months have you had wt loss of >10#?: NO Have you had fever, night sweats or hemotysis?: No Have you traveled outside the country in the last 6 months?: No Isolation: Standard ROS Review of Systems Constitutional: See HPI Eyes: No Symptoms Reported ENTM: No Symptoms Reported Respiratoy: No Symptoms Reported Cardiovascular: No Symptoms Reported Gastrointestinal/Abdominal: No Symptoms Reported Genitourinary: No Symptoms Reported Neurological: No Symptoms Reported Musculoskeletal: No Symptoms Reported Integumentary: No Symptoms Reported Hematologic/Lymphatic: No Symptoms Reported Endocrine: No Symptoms Reported Psychiatric: See HPI, Depression and Excessive crying All Other Systems: Reviewed and Negative PE Vitals Vitals: Temperature 98.6 F Pulse Rate [Left Radial] 84 Pulse Rate 88 Respiratory Rate 22 Blood Pressure [Left Arm] 186/79 Blood Pressure [Right Arm] 136/63 Blood Pressure 183/86 O2 Sat by Pulse Oximetry 96 Head Head Exam: Normal Inspection and Atraumatic Eyes Eye exam: Normal Appearance and PERRL ENT ENT Exam: Normal Exam and Normal Oropharynx Neck Neck Exam: Normal Inspection and Full ROM Chest Chest Inspection: Normal Inspection Respiratory Respiratory Exam: Normal Lung Sounds Bilat Respiratory Exam: Bilateral: Clear to Auscultation Abdominal Exam Abdominal Exam: Normal Inspection and Normal Bowel Sounds Extremities Extremities Exam: Normal Inspection and Full ROM Back Back Exam: Normal Inspection, Full ROM (LIMITED RANGE OF MOTION), Tenderness, (R) Straight Leg Raise (PAIN AT 80 DEGREES) and (L) Straight Leg Raise (PAIN AT 60 DEGREES) Neurologic Neurological Exam: Alert and Oriented X3 (ORIENTED X 2) Psychiatric Psychiatric Exam: Depressed, Agitated, Manic and Other (DENIES AUDIBLE AND VISUAL HALLUCINATIONS) Expanded Psychiatric Exam: Poor Eye Contact and Flight of Ideas Skin Skin Exam: Warm and Dry MDM Differential Diagnosis Differential diagnosis: Bipolar disorder (ACUTE CHRISTIAN, ALTERED MENTAL STATUS) COURSE Treatment Treatment: IV NORMAL SALINE 20 ML /HR, ATIVAN 1MG AND MORPHINE 2MG IV Reevaluation 1st: Improved (MINIMAL IMPROVEMENT) Consultation Call Returned: 21:20 Consultation Comments: CALLED DR HERNANDEZ AT 2120 FOR OBSERVATION [facility] Labs Reviewed Laboratory Results Reviewed?: Yes Result Diagrams: 12/17/20 16:31 12/17/20 16:31 Laboratory: WBC 8.5 X10^3/uL (3.6-10.0) 12/17/20 16:31 RBC 4.58 X10^6/uL (3.5-5.4) 12/17/20 16:31 Hgb 14.5 g/dL (12.0-16.0) 12/17/20 16:31 Hct 42.0 % (36.0-47.0) 12/17/20 16:31 MCV 91.6 fL (80.0-100.0) 12/17/20 16:31 MCH 31.7 pg (27.0-34.0) 12/17/20 16:31 MCHC 34.6 g/dL (33.0-35.0) 12/17/20 16:31 RDW 13.2 % (11.6-16.5) 12/17/20 16:31 Plt Count 212 X10^3/uL (150.0-450.0) 12/17/20 16:31 MPV 9.2 fL (7.4-11.0) 12/17/20 16:31 Neut % (Auto) 64.3 % (42.0-75.0) 12/17/20 16:31 Lymph % (Auto) 24.6 % (21.0-51.0) 12/17/20 16:31 [place] % (Auto) 8.3 % (0.0-13.0) 12/17/20 16:31 Eos % (Auto) 1.8 % (0.9-2.9) 12/17/20 16:31 Baso % (Auto) 1.0 % (0.2-1.0) 12/17/20 16:31 Neut # (Auto) 5.5 x10^3/uL (2.2-4.8) H 12/17/20 16:31 Lymph # (Auto) 2.1 X10^3/uL (1.3-2.9) 12/17/20 16:31 [place] # (Auto) 0.7 x10^3/uL (0.3-0.8) 12/17/20 16:31 Eos # (Auto) 0.2 x10^3/uL (0.0-0.2) 12/17/20 16:31 Baso # (Auto) 0.1 X10^3/uL (0.0-0.1) 12/17/20 16:31 Absolute Nucleated RBC 0.0 /100WBC 12/17/20 16:31 Sample Site Left radial 12/17/20 16:38 ABG pH 7.480 (7.35-7.45) H 12/17/20 16:38 ABG pCO2 33.0 mmHg (35.0-45.0) L 12/17/20 16:38 ABG pO2 66.0 mmHg (80.0-100.0) L 12/17/20 16:38 ABG HCO3 24.6 mmol/L (22-26) 12/17/20 16:38 ABG O2 Saturation 94.0 % (90-100) 12/17/20 16:38 ABG Base Excess 1.5 mmol/L (-2.0-2.0) 12/17/20 16:38 Sammy Test Pos 12/17/20 16:38 A-a Gradient 42.0 mmHg 12/17/20 16:38 FiO2 21.0 12/17/20 16:38 Blood Gas Comments Jerman well eb/aw 12/17/20 16:38 Sodium 140 mmol/L (136-145) 12/17/20 16:31 Corrected Sodium TNP 12/17/20 16:31 Potassium 3.6 mmol/L (3.5-5.1) 12/17/20 16:31 Chloride 105 mmol/L (98-107) 12/17/20 16:31 Carbon Dioxide 24.7 mmol/L (21-32) 12/17/20 16:31 BUN 22 mg/dL (7-18) H 12/17/20 16:31 Creatinine 1.56 mg/dL (0.55-1.02) H 12/17/20 16:31 Est GFR (MDRD) Af Amer 41 (>60) L 12/17/20 16:31 Est GFR (MDRD) Non-Af 34 (>60) L 12/17/20 16:31 Glucose 110 mg/dL (65-99) H 12/17/20 16:31 Lactic Acid 1.7 mmol/L (0.4-2.0) 12/17/20 16:31 Calcium 9.8 mg/dL (8.5-10.1) 12/17/20 16:31 Corrected Calcium TNP 12/17/20 16:31 Total Bilirubin 0.60 mg/dL (0.2-1.0) 12/17/20 16:31 AST 36 Units/L (15-37) 12/17/20 16:31 ALT 35 Units/L (12-78) 12/17/20 16:31 Alkaline Phosphatase 120 Units/L (46-116) H 12/17/20 16:31 Troponin I < 0.02 ng/mL (0-1.5) 12/17/20 16:31 Total Protein 7.9 g/dL (6.4-8.2) 12/17/20 16:31 Albumin 3.7 g/dL (3.4-5.0) 12/17/20 16:31 Globulin 4.2 g/dL (2.5-4.5) 12/17/20 16:31 Albumin/Globulin Ratio 0.9 Ratio (1.1-2.1) L 12/17/20 16:31 Specimen Type Catherized urine 12/17/20 16:00 Urine Color Yellow (YELLOW) 12/17/20 16:00 Urine Appearance Clear (CLEAR) 12/17/20 16:00 Urine pH 6.0 (5.0 - 8.0) 12/17/20 16:00 Ur Specific [place] 1.010 (1.000-1.030) 12/17/20 16:00 Urine Protein Negative (NEGATIVE) 12/17/20 16:00 Urine Glucose (UA) Negative (NEGATIVE) 12/17/20 16:00 Urine Ketones Negative (NEGATIVE) 12/17/20 16:00 Urine Occult Blood Negative (NEGATIVE) 12/17/20 16:00 Urine Nitrite Negative (NEGATIVE) 12/17/20 16:00 Urine Bilirubin Negative (NEGATIVE) 12/17/20 16:00 Urine Urobilinogen Normal (NORMAL) 12/17/20 16:00 Ur Leukocyte Esterase Negative (NEGATIVE) 12/17/20 16:00 Urine Opiates Screen Negative (NEG=<300) 12/17/20 16:00 Urine Methadone Screen Negative (NEG=<300) 12/17/20 16:00 Ur Barbiturates Screen Negative (NEG=<200) 12/17/20 16:00 Ur Phencyclidine Scrn Negative (NEG=<25) 12/17/20 16:00 Ur Amphetamines Screen Negative (NEG=<1000) 12/17/20 16:00 U Benzodiazepines Scrn Negative (NEG=<200) 12/17/20 16:00 Urine Cocaine Screen Negative (NEG=<300) 12/17/20 16:00 U Marijuana (THC) Screen Negative (NEG=<50) 12/17/20 16:00 SARS CoV-2 RNA Rapid JOAQUIN Negative (NEGATIVE) 12/17/20 21:24 XRAY XRAY Interpreted by: Radiologist (HEAD CT WITHOUT INTRAVENOUS CONTRAST, NO ACUTE PROCESS, LUMBAR CT SCAN NO GROSS VERTEBRAL FRACTURE OR MALALIGMENT SEEN, SEVERE DDD AT L4-L5, DISC SPACE NARROWING, MILD POSTERIOR DISC AT L5-S1, PELVIC CT NO FRACTURE, CHEST XRAY WITH NO ACUTE PROCESS, CHRONIC LUNG DISEASE) Opioid Opioid Risk Tool Age (Joshua box if 16-45): No History of Preadolescent Sexual Abuse: No Total: 0 Total Score Risk Category: Low Risk Copyright: Schuyler ADHIKARI predicting aberrant behaviors Diagnosis Discharge Problem: Altered mental status, Altered mood associated with christian
[2020-12-18] MEDS ORDERED: MORPHINE SULFATE INJ 2 MG INJ IVP PRN (03:28)
[2020-12-18 03:34] VITALS: BMI 36.0
[2020-12-18] MEDS ORDERED: MORPHINE SULFATE INJ 2 MG INJ ONE (03:34)
[2020-12-18] MEDS ORDERED: HALDOL INJ IM PRN (03:54)
[2020-12-18] MEDS ORDERED: NS 1000 ML 1,000 ML ONE (04:26)
[2020-12-18] MEDS ORDERED: PROTONIX TAB 40 MG PO ONE (08:03)
[2020-12-18] MEDS ORDERED: LYRICA CAP 50 mg PO SCH (09:00)
[2020-12-18] MEDS ORDERED: PROTONIX TAB 40 MG PO SCH (09:00)
[2020-12-18] MEDS ORDERED: DIOVAN TAB 160 MG PO SCH (09:00)
[2020-12-18] MEDS ORDERED: VALSARTAN HYDROCHLOROTHIAZIDE PO SCH (09:00)
[2020-12-18] MEDS ORDERED: MIRALAX POWDER (255 GRAMS BTL) PO SCH (09:00)
[2020-12-18] MEDS ORDERED: NS 1000 ML 1,000 ML IV SCH (09:00)
[2020-12-18] MEDS ORDERED: HYDROCHLOROTHIAZIDE 25 MG TAB PO SCH (09:00)
[2020-12-18 09:04] VITALS: BP 120/56
--- NOTE | 2020-12-28 11:01 | DR.CARTERS ---
Short Stay Summary - Admission Date Date of Admission: 12/18/20 - Discharge Date Discharge Date: 12/18/20 - Admission Diagnoses (1) Altered mental status Status: Acute (2) Altered mood associated with christian Status: Acute (3) Acute bronchitis Status: Acute (4) Intractable low back pain Status: Acute - Hospital Course Hospital Course: IS A 75 YEAR OLD PATIENT OF OURS WHO PRESENTED TO THE ER. PATIENTS FAMILY REPORTS THAT SHE HAS HAD ONSET OF CONFUSION THIS MORNING WITH ASSOCIATED RAPID, REPETITIVE SPEECH. SHE HAS REPORTEDLY HAD FLIGHT OF IDEAS WHILE CRYING ABOUT BOBO AND HER PARENTS. DAUGHTER REPORTS THAT PATIENT HAS BEEN MARKEDLY DEPRESSED FOR ABOUT THREE WEEKS. NO HISTORY OF TRAUMA, INJURY, FEVER, OR COUGH. PATIENT DOES COMPLAIN OF LOWER BACK TENDERNESS. SHE HAS LIMITED RANGE OF MOTION AND TENDERNESS. THERE IS PAIN AT 80 DEGREES ON RIGHT STRAIGHT LEG RAISE. THERE IS PAIN AT 60 DEGREES ON LEFT STRAIGHT LEG RAISE. PATIENT IS ALSO NOTED TO HAVE A NON-PRODUCTIVE COUGH. PATIENT IS CRYING AND STATING, I WANT TO SEE MY MAMA AND DADDY. HER PMH INCLUDES COPD, GERD, HTN, BOWEL RESECTION, CHOLECYSTECTOMY, AND HYSTERECTOMY. ON ARRIVAL, VITALS WERE 98.6-80-24-97%-200/85. LABS WERE OBTAINED. ABNORMAL LAB VALUES INCLUDE THE FOLLOWING: BUN 22, CRATININE 1.56, GLUCOSE 110, ALK PHOS 120. ABG REVEALED: PH 7.480, PC02 33, P02 66, HC03 24.6, 02 SAT 94, BASE EXCESS 1.5, A-A GRADIENT 42, FI02 21. COVID-[address] WAS OBTAINED AND REVEALED: 1. Mild chronic microvascular ischemic disease within the frontal periventricular white matter tracks the centrum semiovale, but no discernible acute infarction seen. Consider followup MRI with diffusion- weighted imaging to rule out occult acute infarction if clinically warranted. 2. No skull fracture, intracranial hemorrhage, mass lesion, midline shift, or hydrocephalus seen. A CHEST XRAY WAS OBTAINED AND REVEALED: 1. No acute cardiopulmonary process. 2. Chronic appearing reticular markings which may represent chronic lung disease. LUMBAR SPINE CT WITHOUT CONTRAST REVEALED: 1. No gross vertebral fracture or malalignment seen. 2. No gross disc herniation seen.3. L4-5: severe DDD, marked by disc space narrowing, vacuum disc phenomenon, chronic anterior disc bulge/marginal osteophyte complexes (8.1 mm AP, and posterior disc bulge (projecting 6.7 mm AP) encroaching upon the anterior thecal sac, lateral recesses, and inferior aspects of the neuroforamen, with potential for mild L4 and L5 nerve root impingements. Sagittal image 28- 43; axial image 67-72. Mild bilateral hypertrophic facet joint DJD noted.4. L5- S1: Mild DDD with mild posterior disc bulge (projecting 5.7 mm AP) encroaching upon the anterior epidural fat and inferior aspect of the right neural foramen, with mild impingement of the exiting right L5 nerve root. Sagittal image 30-43; axial image 76-80. Severe right-sided hypertrophic facet joint DJD contributes to right sided bony neural foraminal stenosis. Consider follow-up evaluation and MRI if symptoms persist or worsen. 5. Mild distal lumbar dextroscoliosis (with the apex at level L3/4) which may reflect chronic degenerative change and/or muscle spasm. A PELVIS CT WAS OBTAINED AND REVEALED: There is no evidence for a pelvic, hip, or sacrococcygeal fracture, subluxation, or dislocation. No focal bony erosion or sclerosis is seen. No evidence for spina bifida occulta is seen. There is no evidence for osteoarthritis or avascular necrosis of the hips. No radiodense soft tissue abnormality or foreign body is noted. Multilevel DDD and facet joint DJD is seen in the distal lumbar spine. See dedicated L-spine CT report. A Acosta balloon catheter is seen within a partially collapsed urinary bladder. Status post partial large bowel resection with reanastomosis in the sigmoid region; no anastomotic dehiscence seen. Status post hysterectomy. EKG REVEALED: SINUS RHYTHM WITH HR 80. IN THE ER, SHE WAS GIVEN ATIVAN 1MG IV X 1 DOSE, APRESOLINE 10MG IV X 1 DOSE, ZOFRAN 4MG IV X 1 DOSE, TYLENOL 650MG PO X 1 DOSE, MORPHINE 4MG IV X 1 DOSE, AND ZOFRAN 4MG IV X 1 DOSE. SHE WAS ADMITTED TO THE HOSPITAL FOR FURTHER EVALUATION AND TREATMENT OF AMS, BIPOLAR DISORDER WITH CHRISTIAN, DEPRESSION, ACUTE BRONCHITIS, AND LOWER BACK PAIN. SHE WAS STARTED ON HALDOL 2.5MG IM Q8H PRN, MORPHINE 2MG IV Q4H PRN, AND HER HOME MEDICATIONS WERE RESUMED. ON MORNING ROUNDS, PATIENT IS ALERT AND ORIENTED, LYING IN BED. PATIENTS DAUGHTER IS AT BEDSIDE. BOTH PATIENT AND DAUGHTER REPORT THAT CONFUSION HAS RESOLVED AT THIS TIME. SHE DOES STILL CONTINUE WITH MILD BACK PAIN AND A NON- PRODUCTIVE COUGH. ON EXAMINATION, HEART IS REGULAR IN RATE AND RHYTHM. BILATERAL LUNGS ARE NOTED WITH DIMINISHED LUNG SOUNDS THROUGHOUT. ABDOMEN IS ROUND, SOFT, AND NON-TENDER WITH NORMAL BOWEL SOUNDS NOTED IN ALL QUADRANTS. SHE CONTINUES TO HAVE TENDERNESS TO LUMBAR SPINE. RANGE OF MOTION HAS SLIGHTLY IMPROVED TODAY. HER VITALS THIS MORNING ARE: 97.9-73-23-98%-118/58. WE PLANNED FOR DISCHARGE. INSTRUCTIONS FOR MEDICATIONS AND FOLLOW UP WERE DISCUSSED WITH PATIENT AND HER DAUGHTER. THEY BOTH VERBALIZED UNDERSTANDING OF ALL ORDERS. SHE WAS GIVEN NEW PRESCRIPTIONS FOR CITALOPRAM 40MG PO DAILY, MONTELUKAST 10MG PO HS, AND ROBITUSSIN CF 10ML PO QID PRN COUGH. SHE WAS OTHERWISE INSTRUCTED TO CONTINUE HER CURRENT HOME MEDICATIONS AND TO FOLLOW UP IN THE OFFICE IN ONE WEEK. PATIENT WAS THEN DISCHARGED HOME WITH FAMILY IN IMPROVED, STABLE CONDITION. TIME SPENT ON CLINCIAL ASSESSMENT, REVIEWING LABS AND IMAGING, DECISION MAKING, DOCUMENTATION, AND PREPARING DISCHARGE PAPERS WAS GREATER THAN 75 MINUTES. - Discharge Medications Discharge Medications: Home Medication List Robitussin Cough and Cold CF 10 ml PO QID PRN #240 ml 12/18/20 [Rx] citalopram 40 mg PO DAILY #30 tab 12/18/20 [Rx] montelukast 10 mg PO QHS #30 tab 12/18/20 [Rx] oxybutynin chloride 5 mg PO DAILY 12/18/20 [History] sucralfate 1 g PO ACHS 12/18/20 [History] Prescriptions: citalopraJoseph Leyva montelukast Joseph Rosado Robitussin Cough and Cold CF Joseph Rosado - Discharge Plan Disposition: 01 HOME, SELF-CARE Condition: Stable Prescriptions: citalopram 40 mg PO DAILY #30 tab montelukast 10 mg PO QHS #30 tab Robitussin Cough and Cold CF 10 ml PO QID PRN #240 ml PRN Reason: - Follow up/Referrals Follow up/Referrals: KIM MARCOS [Nurse Practitioner] - 12/24/20 10:00 am - Instructions Instructions: Fall Prevention in the Home, Adult, [id number]-Lnka, Confusion, What You Need to Know About Chronic Back Pain, Opioid Pain Medicine Information, Qoya-ri-Fays, Back Exercises, [id number], Hypertension, Cxho-ct-[id number], Generalized Anxiety Disorder, Adult, Chronic Back Pain, [id number], Pain Medicine Instructions, Kirq-hq-Vudh Additional Instructions: diet as tolerated. activity as tolerated. Forms: Precautions for COVID19, Patient Portal, Social Distancing
== END 2020-12-18 11:10 | disposition home or self-care (01) ==
LOC: OBS 14:51 → ER 14:51 → OBS 12-18 02:40
PROVIDERS: ADMIT Internal Medicine; ATTEND Internal Medicine

== ENCOUNTER 2020-12-21 12:08 | Observation (INO) ==
[2020-12-21] MEDS ORDERED: PROVENTIL NEB TX 0.083% 2.5MG/ 3ML NEB ONE (13:31)
--- NOTE | 2020-12-21 13:58 | RAD ---
HISTORYSOBSTUDYCHEST, 1 [id number]/22/2021.TECHNIQUEAP view of the chestFINDINGSCardiac and mediastinal contours are within normal limits. Lungs appear clear. No definite pleural effusion or pneumothorax. Soft tissue attenuation limits evaluation.IMPRESSIONNo acute pulmonary process.Electronically signed by: Caleb Hinkle (Dec 21, 2020 13:57:13)
[2020-12-21 14:03] LABS: BILIRUBIN,URINE NEGATIVE (NEGATIVE); BLOOD/HEMOGLOBIN,URINE NEGATIVE (NEGATIVE); GLUCOSE, URINE NEGATIVE (NEGATIVE); KETONES,URINE NEGATIVE (NEGATIVE); LEUKOCYTE ESTERASE ,URINE 2+ (NEGATIVE); NITRITES,URINE NEGATIVE (NEGATIVE); PROTEIN,URINE NEGATIVE (NEGATIVE); UROBILINOGEN,URINE NORMAL (NORMAL)
[2020-12-21] MEDS ORDERED: PROVENTIL NEB TX 0.083% 2.5MG/ 3ML ONE (14:08)
[2020-12-21 14:10] LABS: COLOR,URINE YELLOW (YELLOW)
[2020-12-21 14:11] LABS: APPEARANCE,URINE SLIGHTLY HAZY (CLEAR); BACTERIA,URINE 1+ /HPF (NEGATIVE); RBC,URINE NONE SEEN /HPF (0-3); SQUAMOUS EPITHELIAL CELL,UR FEW /HPF (NEGATIVE)
[2020-12-21] MEDS ORDERED: ULTRAM PO ONE (14:15)
[2020-12-21 14:19] LABS: BASOPHILS # (AUTO) 0.1 X10^3/uL (0.0-0.1); BASOPHILS % (AUTO) 0.9 % (0.2-1.0); EOSINOPHILS # (AUTO) 0.3 x10^3/uL (0.0-0.2); EOSINOPHILS % (AUTO) 4.1 % (0.9-2.9); HEMATOCRIT 41.2 % (36.0-47.0); HEMOGLOBIN 13.4 g/dL (12.0-16.0); LYMPHOCYTES # (AUTO) 0.9 X10^3/uL (1.3-2.9); LYMPHOCYTES % (AUTO) 13.8 % (21.0-51.0); MEAN CORPUSCULAR HGB CONC 32.6 g/dL (33.0-35.0); MEAN PLATELET VOLUME 9.1 fL (7.4-11.0); MONOCYTES # (AUTO) 0.6 x10^3/uL (0.3-0.8); MONOCYTES % (AUTO) 9.9 % (0.0-13.0); NEUTROPHILS # (AUTO) 4.4 x10^3/uL (2.2-4.8); NEUTROPHILS % (AUTO) 71.3 % (42.0-75.0); PLATELET COUNT 142 X10^3/uL (150.0-450.0); RED BLOOD COUNT 4.34 X10^6/uL (3.5-5.4); RED CELL DISTRIBUTION WIDTH 12.8 % (11.6-16.5); WHITE BLOOD COUNT 6.2 X10^3/uL (3.6-10.0)
[2020-12-21] MEDS ORDERED: ULTRAM ONE (14:43)
[2020-12-21 14:48] LABS: ALANINE AMINOTRANSFERASE 29 Units/L (12-78); ALBUMIN 3.6 g/dL (3.4-5.0); ALKALINE PHOSPHATASE 95 Units/L (46-116); ASPARTATE AMINO TRANSFERASE 35 Units/L (15-37); BLOOD UREA NITROGEN 34 mg/dL (7-18); CALCIUM 9.5 mg/dL (8.5-10.1); CARBON DIOXIDE 29.3 mmol/L (21-32); CHLORIDE 102 mmol/L (98-107); CKMB % 0.4 % (<4); COR NA(FOR HYPERGLY) 140 mmol/L (136-145); CREATINE KINASE 250 Units/L (26-192); CREATINE KINASE MB < 1.0 ng/mL (0-4.0); CREATININE 1.51 mg/dL (0.55-1.02); SODIUM 139 mmol/L (136-145); TOTAL PROTEIN 7.8 g/dL (6.4-8.2); TROPONIN I < 0.02 ng/mL (0-1.5); eGFR NON BLACK RACES 36 (>60)
[2020-12-21] MEDS ORDERED: MOTRIN TAB 800 MG PO STA (15:58)
--- NOTE | 2020-12-21 16:00 | DR.GENAD ---
HPI Time Seen Time Seen by Provider: 12/21/20 13:00 PCP Primary Care Physician: ELSA MARCOS HPI Comment HPI Comment: Patient brought in by daughter with complaint of wheezing, weakness, neck pain and altered mental status. patient with history of OA for which she takes Percocet. patient was recently admitted for AMS/psychosis and has been seen by [employer] SCIENCES PROFESSOR at Dr. Rosado's office for medication adjustments. Daughter notes that patient has been so weak that her sons have had to help the patient to restroom. Daughter thinks that psychotic episode was due to polypharmacy, and notes that her mother is "sensitive" to medications. Complaint/Symptoms Chief Complaint:: PATIENT CAME TO ER REPORTS HAVING NECK PAIN AND LEFT SHOULDER PAIN ONSET THIS AM. COVID-19 Coronavirus risk:travel/contact w/high risk person: No Has patient experienced Coronavirus symptoms: No Source History Provided: Patient and Family Member Mode of Arrival Mode of Arrival: Wheelchair Timing Onset of Chief Complaint: 12/21/20 PMH PMH Past Medical History: Yes Past Medical History: Anxiety, Arthritis, Cirrhosis and Hypertension Past Surgical History: Yes Surgical History: Cholecystectomy and Hysterectomy Past Surgical History Comment: REMOVAL PART OF COLON Family History History of Family Medical Conditions: Yes Family Medical History: Diabetes Mellitus and Cancer Social History Alcohol Use: None Do you use any recreational Drugs:: No Lives With: Family Lives Where: Home Travel Risk Coronavirus risk:travel/contact w/high risk person: No Has patient experienced Coronavirus symptoms: No Infectious screening In the last 2 months have you had wt loss of >10#?: NO Have you had fever, night sweats or hemotysis?: No Have you traveled outside the country in the last 6 months?: No Isolation: Standard ROS Review of Systems Constitutional: See HPI All Other Systems: Reviewed and Negative PE Vital Signs Vitals: Temperature 98.3 F Pulse Rate 80 Respiratory Rate 18 Blood Pressure [Left Arm] 104/54 Blood Pressure [Right Arm] 136/63 Blood Pressure 118/56 O2 Sat by Pulse Oximetry 96 General Limitations: No Limitations General Appearance: Alert and In No Apparent Distress Head Head Exam: Normal Inspection, Atraumatic and Normocephalic ENT ENT Exam: Normal Exam Neck Neck Exam: Normal Inspection, Trachea Midline and Other (upper airway sound transmitted to neck) Chest Chest Inspection: Normal Inspection and Symmetric Chest Wall Rise Respiratory Respiratory Exam: Normal Lung Sounds Bilat Respiratory Exam: Bilateral: Clear to Auscultation Cardiovascular Cardiovascular Exam: Regular Rate, Normal Rhythm and Normal Heart Sounds Abdominal Exam Abdominal Exam: Normal Inspection Neurologic Neurological Exam: Alert and Oriented X3 Psychiatric Psychiatric Exam: Normal Affect and Normal Mood Skin Skin Exam: Warm, Dry and Intact COURSE Reevaluation 1st: Unchanged Consultation Consultation Comments: Spoke with Dr. Rosado who accepts patient to his service. [facility] Labs Reviewed Laboratory Results Reviewed?: Yes Result Diagrams: 12/21/20 14:05 12/21/20 14:05 Laboratory: WBC 6.2 X10^3/uL (3.6-10.0) 12/21/20 14:05 RBC 4.34 X10^6/uL (3.5-5.4) 12/21/20 14:05 Hgb 13.4 g/dL (12.0-16.0) 12/21/20 14:05 Hct 41.2 % (36.0-47.0) 12/21/20 14:05 MCV 95.0 fL (80.0-100.0) 12/21/20 14:05 MCH 31.0 pg (27.0-34.0) 12/21/20 14:05 MCHC 32.6 g/dL (33.0-35.0) L 12/21/20 14:05 RDW 12.8 % (11.6-16.5) 12/21/20 14:05 Plt Count 142 X10^3/uL (150.0-450.0) L 12/21/20 14:05 MPV 9.1 fL (7.4-11.0) 12/21/20 14:05 Neut % (Auto) 71.3 % (42.0-75.0) 12/21/20 14:05 Lymph % (Auto) 13.8 % (21.0-51.0) L 12/21/20 14:05 [place] % (Auto) 9.9 % (0.0-13.0) 12/21/20 14:05 Eos % (Auto) 4.1 % (0.9-2.9) H 12/21/20 14:05 Baso % (Auto) 0.9 % (0.2-1.0) 12/21/20 14:05 Neut # (Auto) 4.4 x10^3/uL (2.2-4.8) 12/21/20 14:05 Lymph # (Auto) 0.9 X10^3/uL (1.3-2.9) L 12/21/20 14:05 [place] # (Auto) 0.6 x10^3/uL (0.3-0.8) 12/21/20 14:05 Eos # (Auto) 0.3 x10^3/uL (0.0-0.2) H 12/21/20 14:05 Baso # (Auto) 0.1 X10^3/uL (0.0-0.1) 12/21/20 14:05 Absolute Nucleated RBC 0.0 /100WBC 12/21/20 14:05 Sodium 139 mmol/L (136-145) 12/21/20 14:05 Corrected Sodium 140 mmol/L (136-145) 12/21/20 14:05 Potassium 3.8 mmol/L (3.5-5.1) 12/21/20 14:05 Chloride 102 mmol/L (98-107) 12/21/20 14:05 Carbon Dioxide 29.3 mmol/L (21-32) 12/21/20 14:05 BUN 34 mg/dL (7-18) H 12/21/20 14:05 Creatinine 1.51 mg/dL (0.55-1.02) H 12/21/20 14:05 Est GFR (MDRD) Af Amer 43 (>60) L 12/21/20 14:05 Est GFR (MDRD) Non-Af 36 (>60) L 12/21/20 14:05 Glucose 124 mg/dL (65-99) H 12/21/20 14:05 Calcium 9.5 mg/dL (8.5-10.1) 12/21/20 14:05 Corrected Calcium TNP 12/21/20 14:05 Total Bilirubin 1.00 mg/dL (0.2-1.0) 12/21/20 14:05 AST 35 Units/L (15-37) 12/21/20 14:05 ALT 29 Units/L (12-78) 12/21/20 14:05 Alkaline Phosphatase 95 Units/L (46-116) 12/21/20 14:05 Creatine Kinase 250 Units/L (26-192) H 12/21/20 14:05 CK-MB (CK-2) < 1.0 ng/mL (0-4.0) 12/21/20 14:05 CK/CKMB % Calc 0.4 % (<4) 12/21/20 14:05 Troponin I < 0.02 ng/mL (0-1.5) 12/21/20 14:05 B-Natriuretic Peptide 22.5 pg/mL (0-79) 12/21/20 14:05 Total Protein 7.8 g/dL (6.4-8.2) 12/21/20 14:05 Albumin 3.6 g/dL (3.4-5.0) 12/21/20 14:05 Globulin 4.2 g/dL (2.5-4.5) 12/21/20 14:05 Albumin/Globulin Ratio 0.9 Ratio (1.1-2.1) L 12/21/20 14:05 Specimen Type Random urine 12/21/20 13:40 Urine Color Yellow (YELLOW) 12/21/20 13:40 Urine Appearance Slightly hazy (CLEAR) 12/21/20 13:40 Urine pH 5.0 (5.0 - 8.0) 12/21/20 13:40 Ur Specific [place] 1.010 (1.000-1.030) 12/21/20 13:40 Urine Protein Negative (NEGATIVE) 12/21/20 13:40 Urine Glucose (UA) Negative (NEGATIVE) 12/21/20 13:40 Urine Ketones Negative (NEGATIVE) 12/21/20 13:40 Urine Occult Blood Negative (NEGATIVE) 12/21/20 13:40 Urine Nitrite Negative (NEGATIVE) 12/21/20 13:40 Urine Bilirubin Negative (NEGATIVE) 12/21/20 13:40 Urine Urobilinogen Normal (NORMAL) 12/21/20 13:40 Ur Leukocyte Esterase 2+ (NEGATIVE) 12/21/20 13:40 Urine RBC None seen /HPF (0-3) 12/21/20 13:40 Urine WBC 10-20 /HPF (0-5) A 12/21/20 13:40 Ur Squamous Epith Cells Few /HPF (NEGATIVE) 12/21/20 13:40 Urine Bacteria 1+ /HPF (NEGATIVE) 12/21/20 13:40 Ur Culture Indicated? Yes/culture set up 12/21/20 13:40 XRAY X-ray Results: HISTORY SOB STUDY CHEST, 1 VIEW COMPARISON 12/17/2020. TECHNIQUE AP view of the chest FINDINGS Cardiac and mediastinal contours are within normal limits. Lungs appear clear. No definite pleural effusion or pneumothorax. Soft tissue attenuation limits evaluation. IMPRESSION No acute pulmonary process. Electronically signed by: Caleb Hinkle (Dec 21, 2020 13:57:13) EXAM: HEAD CT WITHOUT INTRAVENOUS CONTRAST HISTORY: Headache. Neck pain. Dizziness. Earache. TECHNIQUE: Spiral axial CT images are obtained through the brain without the administration of intravenous contrast. Sagittal and coronal reformatted images are reconstructed. DOSIMETRY: Total DLP 1223.3 mGycm; CTDI 70.8 mGy COMPARISON: Head CT dated December 17, 2020. FINDINGS: There is stable appearance of mild patchy parenchymal lucencies within the frontal periventricular white matter tracks up to the centrum semiovale in keeping with chronic sequela of atherosclerotic microvascular ischemic disease. The centrum semiovale, basal ganglia, cerebellum, and brainstem are grossly unremarkable for a noncontrast CT scan. There is no acute intracranial hemorrhage, discernible acute infarction, mass lesion, midline shift, or hydrocephalus seen. No extra-axial mass or abnormal fluid collection is seen. Nonspecific pineal gland calcification is seen. The calvarium is intact. The partially imaged paranasal sinuses, middle ear cavities, and mastoid air cells are clear. IMPRESSION: 1. No intracranial hemorrhage, discernible acute infarction, mass lesions, midline shift, mass effect or hydrocephalus seen. 2. Stable mild chronic microvascular ischemic disease of the frontal periventricular white matter tracks. 3. Consider followup evaluation with MRI /MRA imaging for further assessment as clinically warranted. 4. Overall, no significant interval change seen. Electronically signed by: Jeannette Amanda (Dec 21, 2020 16:40:59) HISTORY NECK AND ANDERSON, DIZZINESS, EARS HURT STUDY CERVICAL SPINE W/O CON COMPARISON None TECHNIQUE Multiple axial images of the cervical spine were obtained from the skull base to the thoracic inlet without administration of IV contrast. Sagittal and coronal reformats were performed and reviewed. Dose reduction techniques including Automated Exposure Control (AEC) and adjustment of mA and kV were utilized. FINDINGS Normal cervical spinal alignment. Mild multilevel cervical spine degenerative changes. No acute cervical spine fracture. No acute soft tissue abnormality in the neck. IMPRESSION No acute cervical spine fracture. Electronically signed by: IKE CORTES (Dec 21, 2020 16:39:13) Opioid Opioid Risk Tool Age (Joshua box if 16-45): No History of Preadolescent Sexual Abuse: No Total: 0 Total Score Risk Category: Low Risk Copyright: Schuyler ADHIKARI predicting aberrant behaviors Diagnosis Discharge Problem: Intractable low back pain Altered mental status Qualifiers: Altered mental status type: unspecified Qualified Code(s): R41.82 - Altered mental status, unspecified
[2020-12-21] MEDS ORDERED: MOTRIN TAB 800 MG PO ONE (16:04)
--- NOTE | 2020-12-21 16:40 | CT ---
HISTORYNECK AND ANDERSON, DIZZINESS, EARS HURTSTUDYCERVICAL SPINE W/O CONCOMPARISONNoneTECHNIQUEMultiple axial images of the cervical spine were obtained from the skull base to the thoracic inlet without administration of IV contrast. Sagittal and coronal reformats were performed and reviewed. Dose reduction techniques including Automated Exposure Control (AEC) and adjustment of mA and kV were utilized.FINDINGSNormal cervical spinal alignment. Mild multilevel cervical spine degenerative changes. No acute cervical spine fracture.No acute soft tissue abnormality in the neck.IMPRESSIONNo acute cervical spine fracture.Electronically signed by: IKE CORTES (Dec 21, 2020 16:39:13)
--- NOTE | 2020-12-21 16:42 | CT ---
EXAM: HEAD CT WITHOUT INTRAVENOUS CONTRASTHISTORY: Headache. Neck pain. Dizziness. Earache.TECHNIQUE: Spiral axial CT images are obtained through the brain without the administration of intravenous contrast. Sagittal and coronal reformatted images are reconstructed.DOSIMETRY: Total DLP 1223.3 mGycm; CTDI 70.8 mGyCOMPARISON: Head CT dated December 17, 2020.FINDINGS:There is stable appearance of mild patchy parenchymal lucencies within the frontal periventricular white matter tracks up to the centrum semiovale in keeping with chronic sequela of atherosclerotic microvascular ischemic disease. The centrum semiovale, basal ganglia, cerebellum, and brainstem are grossly unremarkable for a noncontrast CT scan.There is no acute intracranial hemorrhage, discernible acute infarction, mass lesion, midline shift, or hydrocephalus seen. No extra-axial mass or abnormal fluid collection is seen. Nonspecific pineal gland calcification is seen.The calvarium is intact. The partially imaged paranasal sinuses, middle ear cavities, and mastoid air cells are clear.IMPRESSION:1. No intracranial hemorrhage, discernible acute infarction, mass lesions, midline shift, mass effect or hydrocephalus seen.2. Stable mild chronic microvascular ischemic disease of the frontal periventricular white matter tracks.3. Consider followup evaluation with MRI /MRA imaging for further assessment as clinically warranted.4. Overall, no significant interval change seen.Electronically signed by: Jeannette Amanda (Dec 21, 2020 16:40:59)
[2020-12-21] MEDS: NS 1000 ML 1,000 ML IV SCH (22:11)
[2020-12-21] MEDS: INVANZ INJ 1 GM VIAL 1 GM in NS 100 ML IV + SPIKE MINIBAG* 100 ML IV SCH (22:11)
[2020-12-21] MEDS ORDERED: COLACE CAP 100 MG PO PRN (22:12)
[2020-12-21] MEDS ORDERED: MILK OF MAGNESIA PO PRN (22:12)
[2020-12-21] MEDS ORDERED: PERCOCET TAB 5/325 MG PO PRN (22:46)
[2020-12-21 22:50] VITALS: BMI 36.7
[2020-12-21] MEDS ORDERED: PERCOCET TAB 5/325 MG ONE (23:06)
[2020-12-22 06:47] LABS: BASOPHILS # (AUTO) 0.1 X10^3/uL (0.0-0.1); BASOPHILS % (AUTO) 1.1 % (0.2-1.0); EOSINOPHILS # (AUTO) 0.2 x10^3/uL (0.0-0.2); EOSINOPHILS % (AUTO) 4.6 % (0.9-2.9); HEMATOCRIT 35.5 % (36.0-47.0); HEMOGLOBIN 12.2 g/dL (12.0-16.0); LYMPHOCYTES # (AUTO) 1.2 X10^3/uL (1.3-2.9); LYMPHOCYTES % (AUTO) 23.1 % (21.0-51.0); MEAN CORPUSCULAR HGB CONC 34.3 g/dL (33.0-35.0); MEAN CORPUSCULAR VOLUME 93.1 fL (80.0-100.0); MEAN PLATELET VOLUME 9.3 fL (7.4-11.0); MONOCYTES # (AUTO) 0.5 x10^3/uL (0.3-0.8); MONOCYTES % (AUTO) 10.8 % (0.0-13.0); NEUTROPHILS % (AUTO) 60.4 % (42.0-75.0); PLATELET COUNT 133 X10^3/uL (150.0-450.0); RED BLOOD COUNT 3.81 X10^6/uL (3.5-5.4); RED CELL DISTRIBUTION WIDTH 13.1 % (11.6-16.5)
[2020-12-22 07:02] LABS: ALANINE AMINOTRANSFERASE 27 Units/L (12-78); ALBUMIN 2.9 g/dL (3.4-5.0); ALKALINE PHOSPHATASE 78 Units/L (46-116); ASPARTATE AMINO TRANSFERASE 30 Units/L (15-37); BLOOD UREA NITROGEN 28 mg/dL (7-18); CALCIUM 8.9 mg/dL (8.5-10.1); CHLORIDE 106 mmol/L (98-107); COR CA(FOR HYPOALB) 9.8 mg/dL (8.5-10.1); CREATININE 1.27 mg/dL (0.55-1.02); SODIUM 143 mmol/L (136-145); TOTAL PROTEIN 6.7 g/dL (6.4-8.2); eGFR NON BLACK RACES 43 (>60)
[2020-12-22] MEDS: SOLU-Medrol 40 MG VIAL IVP SCH ×3 (09:54→20:49)
[2020-12-22] MEDS: PERCOCET TAB 5/325 MG PO PRN ×2 (10:41→18:16)
[2020-12-22] MEDS: NS 1000 ML 1,000 ML IV SCH (11:30)
[2020-12-22] MEDS: XOPENEX 1.25 MG/3 ML NEBULE NEB SCH ×3 (12:13→20:50)
[2020-12-22] MEDS ORDERED: DULCOLAX SUPPOSITORY 10 MG RECTAL ONE (14:00)
[2020-12-22] MEDS: MILK OF MAGNESIA PO SCH ×3 (14:27→22:23)
--- NOTE | 2020-12-22 16:08 | DR.H&P ---
H&P - History & Physical for Day of: H&P Date: 12/21/20 - Chief Complaint Chief Complaint: WEAKNESS, COUGH, WHEEZING, CONFUSION, NECK PAIN - History of Present Illness History of Present Illness: IS A 75 YEAR OLD PATIENT OF OURS WHO PRESENTED TO THE ER WITH FAMILY MEMBERS REPORTING THAT PATIENT HAS HAD COUGH, WHEEZING, WEAKNESS, NECK PAIN, AND CONFUSION FOR THE PAST WEEK. SHE WAS ADMITTED FOR OVERNIGHT OBSERVATION EARLIER IN THE WEEK DUE TO AGITATED PSYCHOSIS. SHE WAS PLACED ON SEROQUEL AT THAT TIME. PATIENTS DAUGHTER REPORTS THAT PATIENT HAS BEEN SO WEAK, THAT SHE HAS NEEDED ASSISTANCE WITH AMBULATION. NECK PAIN IS DESCRIBED DULL AND IS RATED A 6/10. SHE ALSO REPORTS LEFT SHOULDER PAIN WHICH IS CURRENTLY RATED A 5/10. PATIENT ALSO REPORTS THAT SHE HASNT HAD A BOWEL MOVEMENT IN SEVERAL DAYS. SHE HAS A HISTORY OF OSTEOARTHRITIS AND DDD, FOR WHICH SHE TAKES PERCOCET NEEDED. OTHER PMH INCLUDES ANXIETY, ARTHRITIS, CIRRHOSIS, HYPERTENSION, CHOLECYSTECTOMY, AND HYSTERECTOMY. SHE IS NOTED WITH SCATTERED WHEEZING TO AUSCULTATION. ON ARRIVAL TO THE ER, VITALS WERE 98.3-78-18-98%-118/56. LABS WERE OBTAINED. ABNORMAL LAB VALUES INCLUDE THE FOLLOWING: PLT COUNT 142, BUN 34, CREATININE 1.51, GLUCOSE 124, CREATINE KINASE 250. A URINALYSIS WAS OBTAINED AND REVEALED: WBC 10-20, RBC NONE SEEN, LEUKOCYTES 2+, BACTERIA 1+. COVID-19, INFLUENZA, AND RSV NEGATIVE. BLOOD AND URINE CULTURES ARE PENDING. A CHEST XRAY WAS OBTAINED AND REVEALED: No acute pulmonary process. EKG REVEALED SINUS RHYTHM WITH HR 84. A CERVICAL SPINE CT WAS OBTAINED AND REVEALED: Normal cervical spinal alignment. Mild multilevel cervical spine degenerative changes. No acute cervical spine fracture. No acute soft tissue abnormality in the neck. A BRAIN CT WITH CONTRAST WAS OBTAINED AND REVEALED: 1. No intracranial hemorrhage, discernible acute infarction, mass lesions, midline shift, mass effect or hydrocephalus seen. 2. Stable mild chronic microvascular ischemic disease of the frontal periventricular white matter tracks. 3. Consider followup evaluation with MRI /MRA imaging for further assessment as clinically warranted. 4. Overall, no significant interval change seen. IN THE ER, SHE WAS GIVEN A PROVENTIL NEB X 1 DOSE, ULTRAM 50MG PO X 1 DOSE, AND MOTRIN 800MG PO X 1 DOSE. SHE WAS ADMITTED TO THE HOSPITAL FOR FURTHER EVALUATION AND TREATMENT OF ACUTE BRONCHITIS, UTI, GENERALIZED WEAKNESS, AMS, AND BACK PAIN. SHE WAS STARTED ON NORMAL SALINE AT 75 ML/HR, INVANZ 1G IV DAILY, SOLU-MEDROL 40MG IV Q8H, XOPENEX NEB TX TID, PERCOCET 5/325MG PO TID PRN, MILK OF MAGNESIA 30MG PO QID, AND COLACE 200MG PO BID. OTHERWISE, WE PLAN TO FOLLOW UP WITH AM LABS AND CONTINUE TO MONITOR. TIME SPENT ON CLINICAL ASSESSMENT, REVIEWING LABS AND IMAGING, DECISION MAKING, AND DOCUMENTATION GREATER THAN 75 MINUTES. - Past Medical History Past Medical History: Hypertension, Cirrhosis, Anxiety, Arthritis - Past Surgical History Surgical History: Bowel Resection, Cholecystectomy, Hysterectomy - Family History Family Medical History: Diabetes Mellitus, Cancer - Social History Alcohol Use: None Drug Use: None - Medications Home Medications: amoxicillin Allergy (Verified 02/06/18 17:34) clavulanic acid [From Augmentin] Allergy (Verified 02/06/18 17:34) Sulfa (Sulfonamide Antibiotics) [SULFA] Allergy (Verified 02/06/18 17:34) sulfamethoxazole [From Bactrim] Allergy (Verified 09/06/20 10:12) trimethoprim [From Bactrim] Allergy (Verified 09/06/20 10:12) CONTINUE taking the following medications oxycodone-acetaminophen 1 tab PO TID MDD 3 12/21/20 [History] - Review of Systems Constitutional: No Symptoms Reported, Weakness, Malaise Eyes: No Symptoms Reported ENT: No Symptoms Reported Respiratory: See HPI, Cough, Shortness of Breath, Wheezing Cardiovascular: No Symptoms Reported Gastrointestinal: No Symptoms Reported Genitourinary: No Symptoms Reported Musculoskeletal: No Symptoms Reported Skin: No Symptoms Reported Neurological: See HPI, Weakness, Confusion - Physical Exam Vital Signs: Temperature 97.9 F Pulse Rate [Left Radial] 111 Pulse Rate 84 Respiratory Rate 20 Blood Pressure [Left Arm] 132/77 Blood Pressure [Right Arm] 136/63 Blood Pressure 140/61 O2 Sat by Pulse Oximetry 93 Oriented: Person Eyes: Normal Ear: Normal Nose: Normal Throat: Normal Respiratory: Wheezes Throughout Cardiovascular: Normal : Normal Auscultation: Bowel Sounds: Normal Palpation: Normal Tenderness: Normal Skin: Normal Musculoskeletal: Left, Shoulder, Back:Lumbar, Tender Psychiatric: Normal Mood Description: Calm Affect: Normal Speech Pattern: Unclear, Inappropriate - Assessment/Plan (1) Acute bronchitis Qualifiers: Bronchitis organism: unspecified organism Qualified Code(s): J20.9 - Acute bronchitis, unspecified Status: Acute Plan: ADMIT, NORMAL SALINE AT 75 ML/HR, INVANZ 1G IV DAILY, SOLU-MEDROL 40MG IV Q8H, XOPENEX NEB TX TID, PERCOCET 5/325MG PO TID PRN, MILK OF MAGNESIA 30MG PO QID, AND COLACE 200MG PO BID. (2) Urinary tract infection Qualifiers: Status: Acute (3) Intractable low back pain Status: Acute (4) Generalized weakness Status: Acute (5) Altered mental status Qualifiers: Altered mental status type: unspecified Qualified Code(s): R41.82 - Altered mental status, unspecified Status: Acute - Allergies Allergies/Adverse Reactions: Allergies Allergy/AdvReac Type Severity Reaction Status Date / Time amoxicillin Allergy Verified 02/06/18 17:34 clavulanic acid Allergy Verified 02/06/18 17:34 [From Augmentin] Sulfa (Sulfonamide Allergy Verified 02/06/18 17:34 Antibiotics) [SULFA] sulfamethoxazole Allergy Verified 09/06/20 10:12 [From Bactrim] trimethoprim [From Bactrim] Allergy Verified 09/06/20 10:12
[2020-12-22] MEDS: INVANZ INJ 1 GM VIAL 1 GM in NS 100 ML IV + SPIKE MINIBAG* 100 ML IV SCH (20:49)
[2020-12-22] MEDS: COLACE CAP 100 MG PO SCH (22:22)
[2020-12-23] MEDS: NS 1000 ML 1,000 ML IV SCH ×2 (00:08→04:50)
[2020-12-23] MEDS ORDERED: RESTORIL CAP 15 MG PO PRN (00:53)
[2020-12-23] MEDS: XOPENEX 1.25 MG/3 ML NEBULE NEB SCH (05:22)
[2020-12-23] MEDS: SOLU-Medrol 40 MG VIAL IVP SCH (05:40)
--- NOTE | 2020-12-23 06:39 | RAD ---
HISTORYSOBSTUDYAP chestCOMPARISONFebruary 2020FINDINGSSimilar appearance of borderline cardiomegaly with dilated aorta. The lungs are clear. There is no evidence for pleural fluid or pulmonary consolidation. The medial right lung and hilar complex are obscured by patient rotation.IMPRESSIONNo definite interval change or acute chest abnormality demonstrated.Electronically signed by: PATRICIA MARY (Dec 23, 2020 06:37:50)
[2020-12-23 06:50] LABS: BASOPHILS % (AUTO) 0.2 % (0.2-1.0); HEMATOCRIT 37.8 % (36.0-47.0); HEMOGLOBIN 12.7 g/dL (12.0-16.0); LYMPHOCYTES # (AUTO) 0.8 X10^3/uL (1.3-2.9); LYMPHOCYTES % (AUTO) 13.3 % (21.0-51.0); MEAN CORPUSCULAR HEMOGLOBIN 31.2 pg (27.0-34.0); MEAN CORPUSCULAR HGB CONC 33.6 g/dL (33.0-35.0); MEAN PLATELET VOLUME 9.5 fL (7.4-11.0); MONOCYTES # (AUTO) 0.2 x10^3/uL (0.3-0.8); MONOCYTES % (AUTO) 2.8 % (0.0-13.0); NEUTROPHILS # (AUTO) 5.3 x10^3/uL (2.2-4.8); NEUTROPHILS % (AUTO) 83.7 % (42.0-75.0); PLATELET COUNT 177 X10^3/uL (150.0-450.0); RED BLOOD COUNT 4.06 X10^6/uL (3.5-5.4); RED CELL DISTRIBUTION WIDTH 13.1 % (11.6-16.5); WHITE BLOOD COUNT 6.3 X10^3/uL (3.6-10.0)
[2020-12-23 07:07] LABS: ALANINE AMINOTRANSFERASE 38 Units/L (12-78); ALBUMIN 3.1 g/dL (3.4-5.0); ALKALINE PHOSPHATASE 87 Units/L (46-116); ASPARTATE AMINO TRANSFERASE 36 Units/L (15-37); BLOOD UREA NITROGEN 22 mg/dL (7-18); CALCIUM 9.2 mg/dL (8.5-10.1); CHLORIDE 104 mmol/L (98-107); COR CA(FOR HYPOALB) 9.9 mg/dL (8.5-10.1); COR NA(FOR HYPERGLY) 143 mmol/L (136-145); CREATININE 1.12 mg/dL (0.55-1.02); SODIUM 142 mmol/L (136-145); TOTAL PROTEIN 7.1 g/dL (6.4-8.2); eGFR NON BLACK RACES 50 (>60)
[2020-12-23 07:45] VITALS: BP 130/61
[2020-12-23] MEDS: COLACE CAP 100 MG PO SCH (08:13)
[2020-12-23] MEDS: MILK OF MAGNESIA PO SCH (08:13)
[2020-12-23 09:41] LABS: BILIRUBIN,URINE NEGATIVE (NEGATIVE); BLOOD/HEMOGLOBIN,URINE 1+ (NEGATIVE); GLUCOSE, URINE NEGATIVE (NEGATIVE); KETONES,URINE NEGATIVE (NEGATIVE); LEUKOCYTE ESTERASE ,URINE NEGATIVE (NEGATIVE); NITRITES,URINE NEGATIVE (NEGATIVE); PROTEIN,URINE 2+ (NEGATIVE); UROBILINOGEN,URINE NORMAL (NORMAL)
[2020-12-23 09:45] LABS: APPEARANCE,URINE CLEAR (CLEAR); COLOR,URINE YELLOW (YELLOW)
[2020-12-23 09:50] LABS: BACTERIA,URINE 1+ /HPF (NEGATIVE); HYALINE CASTS, URINE FEW /LPF (NEGATIVE); MUCUS,URINE FEW /HPF (NEGATIVE); SQUAMOUS EPITHELIAL CELL,UR FEW /HPF (NEGATIVE)
--- NOTE | 2020-12-29 07:51 | DR.GENAD ---
HPI Time Seen Time Seen by Provider: 12/21/20 13:00 PCP Primary Care Physician: ELSA MARCOS Complaint/Symptoms Chief Complaint:: PATIENT CAME TO ER REPORTS HAVING NECK PAIN AND LEFT SHOULDER PAIN ONSET THIS AM. COVID-19 Coronavirus risk:travel/contact w/high risk person: No Has patient experienced Coronavirus symptoms: No Source History Provided: Patient and Family Member Mode of Arrival Mode of Arrival: Wheelchair Timing Onset of Chief Complaint: 12/21/20 PMH PMH Past Medical History: Yes Past Medical History: Anxiety, Arthritis, Cirrhosis and Hypertension Past Surgical History: Yes Surgical History: Cholecystectomy and Hysterectomy Past Surgical History Comment: REMOVAL PART OF COLON Family History History of Family Medical Conditions: Yes Family Medical History: Diabetes Mellitus and Cancer Social History Alcohol Use: None Do you use any recreational Drugs:: No Lives With: Family Lives Where: Home Travel Risk Coronavirus risk:travel/contact w/high risk person: No Has patient experienced Coronavirus symptoms: No Infectious screening In the last 2 months have you had wt loss of >10#?: NO Have you had fever, night sweats or hemotysis?: No Have you traveled outside the country in the last 6 months?: No Isolation: Standard PE Vital Signs Vitals: Temperature 98.3 F Pulse Rate 83 Respiratory Rate 20 Blood Pressure [Left Arm] 104/54 Blood Pressure [Right Arm] 136/63 Blood Pressure 140/61 O2 Sat by Pulse Oximetry 93 ROR Labs Reviewed Result Diagrams: 12/23/20 05:45 12/23/20 05:45 Laboratory: 12/21/20 14:05 Blood Blood Culture - Final 12/21/20 13:55 Blood Blood Culture - Final 12/21/20 13:40 Urine,Random Urine Culture - Final WBC 6.2 X10^3/uL (3.6-10.0) 12/21/20 14:05 RBC 4.34 X10^6/uL (3.5-5.4) 12/21/20 14:05 Hgb 13.4 g/dL (12.0-16.0) 12/21/20 14:05 Hct 41.2 % (36.0-47.0) 12/21/20 14:05 MCV 95.0 fL (80.0-100.0) 12/21/20 14:05 MCH 31.0 pg (27.0-34.0) 12/21/20 14:05 MCHC 32.6 g/dL (33.0-35.0) L 12/21/20 14:05 RDW 12.8 % (11.6-16.5) 12/21/20 14:05 Plt Count 142 X10^3/uL (150.0-450.0) L 12/21/20 14:05 MPV 9.1 fL (7.4-11.0) 12/21/20 14:05 Neut % (Auto) 71.3 % (42.0-75.0) 12/21/20 14:05 Lymph % (Auto) 13.8 % (21.0-51.0) L 12/21/20 14:05 [place] % (Auto) 9.9 % (0.0-13.0) 12/21/20 14:05 Eos % (Auto) 4.1 % (0.9-2.9) H 12/21/20 14:05 Baso % (Auto) 0.9 % (0.2-1.0) 12/21/20 14:05 Neut # (Auto) 4.4 x10^3/uL (2.2-4.8) 12/21/20 14:05 Lymph # (Auto) 0.9 X10^3/uL (1.3-2.9) L 12/21/20 14:05 [place] # (Auto) 0.6 x10^3/uL (0.3-0.8) 12/21/20 14:05 Eos # (Auto) 0.3 x10^3/uL (0.0-0.2) H 12/21/20 14:05 Baso # (Auto) 0.1 X10^3/uL (0.0-0.1) 12/21/20 14:05 Absolute Nucleated RBC 0.0 /100WBC 12/21/20 14:05 Sodium 139 mmol/L (136-145) 12/21/20 14:05 Corrected Sodium 140 mmol/L (136-145) 12/21/20 14:05 Potassium 3.8 mmol/L (3.5-5.1) 12/21/20 14:05 Chloride 102 mmol/L (98-107) 12/21/20 14:05 Carbon Dioxide 29.3 mmol/L (21-32) 12/21/20 14:05 BUN 34 mg/dL (7-18) H 12/21/20 14:05 Creatinine 1.51 mg/dL (0.55-1.02) H 12/21/20 14:05 Est GFR (MDRD) Af Amer 43 (>60) L 12/21/20 14:05 Est GFR (MDRD) Non-Af 36 (>60) L 12/21/20 14:05 Glucose 124 mg/dL (65-99) H 12/21/20 14:05 Calcium 9.5 mg/dL (8.5-10.1) 12/21/20 14:05 Corrected Calcium TNP 12/21/20 14:05 Total Bilirubin 1.00 mg/dL (0.2-1.0) 12/21/20 14:05 AST 35 Units/L (15-37) 12/21/20 14:05 ALT 29 Units/L (12-78) 12/21/20 14:05 Alkaline Phosphatase 95 Units/L (46-116) 12/21/20 14:05 Creatine Kinase 250 Units/L (26-192) H 12/21/20 14:05 CK-MB (CK-2) < 1.0 ng/mL (0-4.0) 12/21/20 14:05 CK/CKMB % Calc 0.4 % (<4) 12/21/20 14:05 Troponin I < 0.02 ng/mL (0-1.5) 12/21/20 14:05 B-Natriuretic Peptide 22.5 pg/mL (0-79) 12/21/20 14:05 Total Protein 7.8 g/dL (6.4-8.2) 12/21/20 14:05 Albumin 3.6 g/dL (3.4-5.0) 12/21/20 14:05 Globulin 4.2 g/dL (2.5-4.5) 12/21/20 14:05 Albumin/Globulin Ratio 0.9 Ratio (1.1-2.1) L 12/21/20 14:05 Specimen Type Random urine 12/21/20 13:40 Urine Color Yellow (YELLOW) 12/21/20 13:40 Urine Appearance Slightly hazy (CLEAR) 12/21/20 13:40 Urine pH 5.0 (5.0 - 8.0) 12/21/20 13:40 Ur Specific [place] 1.010 (1.000-1.030) 12/21/20 13:40 Urine Protein Negative (NEGATIVE) 12/21/20 13:40 Urine Glucose (UA) Negative (NEGATIVE) 12/21/20 13:40 Urine Ketones Negative (NEGATIVE) 12/21/20 13:40 Urine Occult Blood Negative (NEGATIVE) 12/21/20 13:40 Urine Nitrite Negative (NEGATIVE) 12/21/20 13:40 Urine Bilirubin Negative (NEGATIVE) 12/21/20 13:40 Urine Urobilinogen Normal (NORMAL) 12/21/20 13:40 Ur Leukocyte Esterase 2+ (NEGATIVE) 12/21/20 13:40 Urine RBC None seen /HPF (0-3) 12/21/20 13:40 Urine WBC 10-20 /HPF (0-5) A 12/21/20 13:40 Ur Squamous Epith Cells Few /HPF (NEGATIVE) 12/21/20 13:40 Urine Bacteria 1+ /HPF (NEGATIVE) 12/21/20 13:40 Ur Culture Indicated? Yes/culture set up 12/21/20 13:40 SARS-CoV-2 (PCR) Negative (NEGATIVE) 12/21/20 17:33 Influenza Type A (PCR) Negative (NEGATIVE) 12/21/20 17:33 Influenza Type B (PCR) Negative (NEGATIVE) 12/21/20 17:33 RSV (PCR) Negative (NEGATIVE) 12/21/20 17:33 Opioid Opioid Risk Tool Age (Joshua box if 16-45): No History of Preadolescent Sexual Abuse: No Total: 0 Total Score Risk Category: Low Risk Copyright: Schuyler ADHIKARI predicting aberrant behaviors Diagnosis Discharge Problem: Intractable low back pain Altered mental status Qualifiers: Altered mental status type: unspecified Qualified Code(s): R41.82 - Altered mental status, unspecified Instructions Instructions: Pain Scale Information, Adult Opioid Pain Medicine Information, Wjqx-fy-[id number] Fever, Adult, [id number]-it-Vnnb Forms: Excuse From Work or School Precautions for COVID19 Patient Portal Social Distancing
== END 2020-12-23 10:50 | disposition home or self-care (01) ==
LOC: MED/SURG 12:08 → ER 12:08 → MED/SURG 20:42
PROVIDERS: ADMIT Internal Medicine; ATTEND Internal Medicine
DX: Z20.828 Contact with and (suspected) exposure to other viral communicable diseases; R06.02 Shortness of breath; R53.1 Weakness; M54.89 Other dorsalgia; R51.9 Headache, unspecified; R94.31 Abnormal electrocardiogram [ECG] [EKG]; J20.9 Acute bronchitis, unspecified; N39.0 Urinary tract infection, site not specified; M54.2 Cervicalgia